=== PATIENT | female | born 1950 | race Caucasian/White ===

== ENCOUNTER 2023-01-23 20:15 | Inpatient (IN) | payer OTHER, MEDICAID ==
[~2023-01-23] VITALS: Ht 152.4 cm; Wt 43.1 kg
[2023-01-23 20:33] VITALS: BP_SYST 86
[2023-01-23] MEDS ORDERED: NS 500 ML IV ONE (20:45)
[2023-01-23] MEDS ORDERED: NACL 0.9% 1,000 ML IV ONE (20:45)
[2023-01-23 21:29] LABS: BASOPHILS % (AUTO) 0.8 % (0.0-2.0); EOSINOPHILS # (AUTO) 0.2 K/uL (0.0-0.4); EOSINOPHILS % (AUTO) 3.6 % (0.0-4.0); HEMATOCRIT 25.5 % (36-48); HEMOGLOBIN 8.4 g/dL (12.0-16.0); LYMPHOCYTES # (AUTO) 1.7 K/uL (1.0-5.5); LYMPHOCYTES % (AUTO) 40.3 % (20.5-51.5); MEAN CORPUSCULAR HEMOGLOBIN 30 pg (27-31); MEAN CORPUSCULAR HGB CONC 33 % (32-36); MEAN CORPUSCULAR VOLUME 90 fL (79.0-98.0); MONOCYTES # (AUTO) 0.4 K/uL (0.0-1.0); MONOCYTES % (AUTO) 10.2 % (1.7-9.3); NEUTROPHILS # (AUTO) 1.9 K/uL (1.8-7.7); NEUTROPHILS % (AUTO) 45.1 % (40.0-70.0); PLATELET COUNT (AUTO) 247 K/uL (130-430); RED BLOOD CELL COUNT(AUTO) 2.85 MIL/uL (4.2-6.2); RED CELL DISTRIBUTION WIDTH 19.9 % (9.0-15.0); WHITE BLOOD COUNT (AUTO) 4.2 K/uL (4.8-10.8)
[2023-01-23 21:57] LABS: ANION GAP 9 (5-15); CALCIUM 7.5 mg/dL (8.4-11.0); CHLORIDE 99 mmol/L (98-107); CREATININE 0.65 mg/dL (0.55-1.30); GLUCOSE 90 mg/dL (70-99); UREA NITROGEN, BLOOD 7 mg/dL (8-21)
[2023-01-23 22:03] LABS: ALANINE AMINOTRANSFERASE 8 U/L (12-78); ALBUMIN 1.6 g/dL (3.4-4.8); ASPARTATE AMINOTRANSFERASE 19 U/L (10-37); THYROID STIMULATING HORMONE 0.97 uIu/mL (0.34-4.82); TOTAL BILIRUBIN 0.4 mg/dL (0.0-1.0)
[2023-01-23 22:10] LABS: INR 1.2 (0.8-1.2); PROTHROMBIN TIME 12.5 SECS (9.5-12.5)
[2023-01-23] MEDS: POTASSIUM CHLORIDE 40 MEQ in D5W 250 ML IV SCH (22:30)
[2023-01-23] MEDS ORDERED: FERROUS SULFATE PO (22:47)
[2023-01-23] MEDS ORDERED: DRON2.5C22 PO (22:47)
[2023-01-23] MEDS ORDERED: METF-379 PO (22:47)
[2023-01-23] MEDS ORDERED: LACT1TAB21 PO (22:47)
[2023-01-23] MEDS ORDERED: HYDR-3917 PO (22:47)
[2023-01-23] MEDS ORDERED: MELA2.5T PO (22:47)
[2023-01-23] MEDS ORDERED: LINE600T12 IV (22:47)
[2023-01-23] MEDS ORDERED: ACET-73 PO (22:47)
[2023-01-23] MEDS ORDERED: ASCO500T20 PO (22:47)
[2023-01-23] MEDS ORDERED: SIMV-341 PO (22:47)
[2023-01-23] MEDS ORDERED: ZINC100T2 PO (22:47)
[2023-01-23] MEDS ORDERED: BENA10TA73 PO (22:47)
[2023-01-23] MEDS ORDERED: LANS30CA53 PO (22:47)
[2023-01-23] MEDS ORDERED: MULT-1117 PO (22:47)
[2023-01-23] MEDS ORDERED: ARIP20TA4 PO (22:47)
[2023-01-23] MEDS ORDERED: KCL 20 mEq in 100 mL (PREMIX) 200 ML IV ONE (23:37)
[2023-01-24] VITALS (7 sets, daily range): BP systolic 100–151
[2023-01-24] MEDS ORDERED: ONDANSETRON HCL 4 MG/2 ML VIAL IVP PRN (00:45)
[2023-01-24] MEDS ORDERED: KCL 20 mEq in NS 1000 mL 1,000 ML IV ONE (01:00)
[2023-01-24] MEDS ORDERED: ACETAMINOPHEN 500 MG TABLET PO PRN ×2 (01:00→23:45)
[2023-01-24] MEDS ORDERED: KCL 20 mEq in 100 mL (PREMIX) 200 ML IV ONE (04:37)
[2023-01-24] MEDS: POTASSIUM CHLORIDE 40 MEQ in D5W 250 ML IV SCH (04:42)
[2023-01-24 12:27] LABS: BASOPHILS % (AUTO) 0.1 % (0.0-2.0); EOSINOPHILS % (AUTO) 0.3 % (0.0-4.0); HEMOGLOBIN 8.4 g/dL (12.0-16.0); LYMPHOCYTES # (AUTO) 1.3 K/uL (1.0-5.5); LYMPHOCYTES % (AUTO) 24.7 % (20.5-51.5); MEAN CORPUSCULAR HEMOGLOBIN 29 pg (27-31); MEAN CORPUSCULAR HGB CONC 32 % (32-36); MEAN CORPUSCULAR VOLUME 91 fL (79.0-98.0); MONOCYTES # (AUTO) 0.3 K/uL (0.0-1.0); MONOCYTES % (AUTO) 6.2 % (1.7-9.3); NEUTROPHILS # (AUTO) 3.5 K/uL (1.8-7.7); NEUTROPHILS % (AUTO) 68.7 % (40.0-70.0); PLATELET COUNT (AUTO) 216 K/uL (130-430); RED BLOOD CELL COUNT(AUTO) 2.86 MIL/uL (4.2-6.2); RED CELL DISTRIBUTION WIDTH 19.7 % (9.0-15.0); WHITE BLOOD COUNT (AUTO) 5.1 K/uL (4.8-10.8)
[2023-01-24 12:32] LABS: ANION GAP 10 (5-15); CHLORIDE 106 mmol/L (98-107); CREATININE 0.57 mg/dL (0.55-1.30); GLUCOSE 95 mg/dL (70-99); UREA NITROGEN, BLOOD 5 mg/dL (8-21)
[2023-01-24 12:38] LABS: CALCIUM 6.9 mg/dL (8.4-11.0)
[2023-01-24] MEDS ORDERED: NALOXONE HCL 0.4 MG/ML AMP (NARCAN) IVP PRN (23:45)
[2023-01-24] MEDS ORDERED: HYDROcodone/ACETAMIN 5-325 MG TAB (NORCO/ VICODIN) PO PRN (23:45)
[2023-01-25] VITALS: BP_SYST 103
[2023-01-25] MEDS ORDERED: VANCOMYCIN HCL 1,000 MG in NS 250 ML IV ONE (05:00)
[2023-01-25] MEDS ORDERED: VANCOMYCIN HCL 1000 MG/VIAL IV ONE (05:19)
[2023-01-25] MEDS ORDERED: ceFAZolin SODIUM 2 GM in D5W 100 ML IV ONE (06:30)
[2023-01-25 07:50] VITALS: BP_SYST 123
[2023-01-25 08:05] LABS: INR 1.4 (0.8-1.2); PROTHROMBIN TIME 13.8 SECS (9.5-12.5)
[2023-01-25] MEDS ORDERED: BENAZEPRIL HCL Non-Formulary 10 MG TABLET PO SCH (09:00)
[2023-01-25] MEDS ORDERED: LANSOPRAZOLE 30 MG CAPSULE.DR PO SCH (09:00)
[2023-01-25] MEDS: ARIPiprazole 5 MG TAB PO SCH (09:32)
[2023-01-25] MEDS: MULTIVITAMINS TAB 1 TABLET PO SCH (09:34)
[2023-01-25] MEDS: PANTOPRAZOLE SODIUM 40 MG TAB PO SCH (09:35)
[2023-01-25] MEDS: LISINOPRIL 10 MG TABLET (PRINIVIL) PO SCH (09:35)
[2023-01-25] MEDS: LINEZOLID 600 MG TABLET PO SCH ×2 (09:36→21:15)
[2023-01-25] MEDS: ASCORBIC ACID 500 MG TABLET PO SCH (09:36)
[2023-01-25] MEDS: metFORMIN HCL 500 MG TABLET PO SCH ×3 (09:37→17:23)
[2023-01-25 12:41] VITALS: BP_SYST 124
[2023-01-25 16:14] VITALS: BP_SYST 134
[2023-01-25 20:30] VITALS: BP_SYST 107
[2023-01-25] MEDS: SIMVASTATIN 10 MG TABLET PO SCH (21:00)
[2023-01-26] VITALS (7 sets, daily range): BP systolic 110–118
[2023-01-26] MEDS ORDERED: SIMETHICONE 40 MG/0.6 ML ML ONE (06:33)
[2023-01-26] MEDS ORDERED: PROPOFOL 200MG/ 20ML VIAL (DIPRIVAN) IV ONE (07:00)
[2023-01-26] MEDS ORDERED: GLYCOPYRROLATE 0.2 MG/ML VIAL ONE (07:00)
[2023-01-26] MEDS ORDERED: NACL 0.9% 1,000 ML IV SCH (07:45)
[2023-01-26] MEDS ORDERED: ONDANSETRON HCL 4 MG/2 ML VIAL IVP PRN (07:45)
[2023-01-26] MEDS ORDERED: HYDROmorphone 1 MG/ML INJ. CARTRIDGE IVP PRN ×2 (07:45)
[2023-01-26] MEDS: metFORMIN HCL 500 MG TABLET PO SCH ×3 (08:00→17:09)
[2023-01-26] MEDS: LISINOPRIL 10 MG TABLET (PRINIVIL) PO SCH (10:06)
[2023-01-26] MEDS: MULTIVITAMINS TAB 1 TABLET PO SCH (10:06)
[2023-01-26] MEDS: LINEZOLID 600 MG TABLET PO SCH ×2 (10:06→22:27)
[2023-01-26] MEDS: ARIPiprazole 5 MG TAB PO SCH (10:06)
[2023-01-26] MEDS: PANTOPRAZOLE SODIUM 40 MG TAB PO SCH (10:06)
[2023-01-26] MEDS: ASCORBIC ACID 500 MG TABLET PO SCH (10:07)
[2023-01-26] MEDS ORDERED: ALBUTEROL SULFATE 0.083% 2.5 MG/3 ML VIAL.NEB INH PRN (11:00)
[2023-01-26] MEDS ORDERED: ALBUTEROL SULFATE 0.083% 2.5 MG/3 ML VIAL.NEB INH ONE (11:00)
[2023-01-26] MEDS: D5/0.45 NS 1,000 ML IV SCH (11:12)
[2023-01-26] MEDS: LORazepam 2 MG/ML VIAL IVP PRN (22:25)
[2023-01-26] MEDS: SIMVASTATIN 10 MG TABLET PO SCH (22:27)
[2023-01-27] VITALS: BP_SYST 126
[2023-01-27] MEDS ORDERED: METOPROLOL TARTRATE 5 MG/5 ML VIAL IVP ONE (01:00)
[2023-01-27] MEDS: LORazepam 2 MG/ML VIAL IVP PRN ×2 (05:17→16:24)
[2023-01-27] MEDS: D5/0.45 NS 1,000 ML IV SCH ×2 (05:21→23:01)
[2023-01-27 05:24] VITALS: BP_SYST 109
[2023-01-27 07:56] VITALS: BP_SYST 143
[2023-01-27] MEDS: metFORMIN HCL 500 MG TABLET PO SCH ×3 (09:03→17:49)
[2023-01-27] MEDS: PANTOPRAZOLE SODIUM 40 MG TAB PO SCH (09:03)
[2023-01-27] MEDS: ARIPiprazole 5 MG TAB PO SCH (09:03)
[2023-01-27] MEDS: ASCORBIC ACID 500 MG TABLET PO SCH (09:04)
[2023-01-27] MEDS: METOPROLOL TARTRATE 25 MG TABLET GT SCH ×2 (09:04→23:01)
[2023-01-27] MEDS: MULTIVITAMINS TAB 1 TABLET PO SCH (09:04)
[2023-01-27] MEDS: LINEZOLID 600 MG TABLET PO SCH ×2 (09:05→23:00)
[2023-01-27] MEDS: LISINOPRIL 10 MG TABLET (PRINIVIL) PO SCH (09:05)
[2023-01-27 09:10] LABS: BASOPHILS % (AUTO) 0.5 % (0.0-2.0); EOSINOPHILS % (AUTO) 0.3 % (0.0-4.0); HEMATOCRIT 26.8 % (36-48); HEMOGLOBIN 8.7 g/dL (12.0-16.0); LYMPHOCYTES # (AUTO) 1.8 K/uL (1.0-5.5); LYMPHOCYTES % (AUTO) 21.3 % (20.5-51.5); MEAN CORPUSCULAR HEMOGLOBIN 29 pg (27-31); MEAN CORPUSCULAR HGB CONC 32 % (32-36); MEAN CORPUSCULAR VOLUME 90 fL (79.0-98.0); MONOCYTES # (AUTO) 0.7 K/uL (0.0-1.0); MONOCYTES % (AUTO) 8.6 % (1.7-9.3); NEUTROPHILS # (AUTO) 5.7 K/uL (1.8-7.7); NEUTROPHILS % (AUTO) 69.3 % (40.0-70.0); PLATELET COUNT (AUTO) 265 K/uL (130-430); RED BLOOD CELL COUNT(AUTO) 2.99 MIL/uL (4.2-6.2); RED CELL DISTRIBUTION WIDTH 20.2 % (9.0-15.0); WHITE BLOOD COUNT (AUTO) 8.3 K/uL (4.8-10.8)
[2023-01-27 09:29] LABS: ALANINE AMINOTRANSFERASE 10 U/L (12-78); ALBUMIN 1.6 g/dL (3.4-4.8); ANION GAP 8 (5-15); ASPARTATE AMINOTRANSFERASE 16 U/L (10-37); CALCIUM 7.3 mg/dL (8.4-11.0); CHLORIDE 105 mmol/L (98-107); CREATININE 0.78 mg/dL (0.55-1.30); GLUCOSE 251 mg/dL (70-99); TOTAL BILIRUBIN 0.3 mg/dL (0.0-1.0); UREA NITROGEN, BLOOD 4 mg/dL (8-21)
[2023-01-27 12:00] VITALS: BP_SYST 94
[2023-01-27 16:00] VITALS: BP_SYST 140
[2023-01-27 21:00] VITALS: BP_SYST 135
[2023-01-27] MEDS: SIMVASTATIN 10 MG TABLET PO SCH (23:00)
[2023-01-27] MEDS: POTASSIUM CHLORIDE 20 MEQ TAB.PRT.SR PO PRN (23:00)
[2023-01-28 00:09] VITALS: BP_SYST 98
[2023-01-28] MEDS: POTASSIUM CHLORIDE 20 MEQ TAB.PRT.SR PO PRN (01:17)
[2023-01-28 08:00] VITALS: BP_SYST 86
[2023-01-28] MEDS ORDERED: NS 250 ML IV ONE (08:00)
[2023-01-28] MEDS: ARIPiprazole 5 MG TAB PO SCH (09:04)
[2023-01-28] MEDS: metFORMIN HCL 500 MG TABLET PO SCH ×3 (09:04→17:50)
[2023-01-28] MEDS: MULTIVITAMINS TAB 1 TABLET PO SCH (09:05)
[2023-01-28] MEDS: PANTOPRAZOLE SODIUM 40 MG TAB PO SCH (09:06)
[2023-01-28] MEDS: ASCORBIC ACID 500 MG TABLET PO SCH (09:06)
[2023-01-28 09:09] LABS: ANION GAP 10 (5-15); CHLORIDE 106 mmol/L (98-107); CREATININE 0.67 mg/dL (0.55-1.30); GLUCOSE 173 mg/dL (70-99); UREA NITROGEN, BLOOD 5 mg/dL (8-21)
[2023-01-28] MEDS: LINEZOLID 600 MG TABLET PO SCH ×2 (09:15→22:59)
[2023-01-28] MEDS ORDERED: POTASSIUM CHLORIDE 20 MEQ/PKT PACKET GT ONE ×2 (10:00→14:00)
[2023-01-28] MEDS: D5/0.45 NS 1,000 ML IV SCH (10:38)
[2023-01-28 12:00] VITALS: BP_SYST 141
[2023-01-28 16:00] VITALS: BP_SYST 92
[2023-01-28 20:30] VITALS: BP_SYST 114
[2023-01-28] MEDS: SIMVASTATIN 10 MG TABLET PO SCH (23:00)
[2023-01-29 00:18] VITALS: BP_SYST 116
[2023-01-29] MEDS: LORazepam 2 MG/ML VIAL IVP PRN (01:40)
[2023-01-29] MEDS: metFORMIN HCL 500 MG TABLET PO SCH ×2 (08:56→13:13)
[2023-01-29] MEDS: LINEZOLID 600 MG TABLET PO SCH (08:57)
[2023-01-29] MEDS: PANTOPRAZOLE SODIUM 40 MG TAB PO SCH (08:57)
[2023-01-29] MEDS: ARIPiprazole 5 MG TAB PO SCH (08:57)
[2023-01-29] MEDS: MULTIVITAMINS TAB 1 TABLET PO SCH (08:57)
[2023-01-29] MEDS: ASCORBIC ACID 500 MG TABLET PO SCH (08:57)
[2023-01-29 13:00] VITALS: BP_SYST 90
[2023-01-29 17:28] VITALS: BP_SYST 90
== END 2023-01-29 23:36 | DRG 637 ==
LOC: SED 20:15 → STU 01-24 00:58
PROVIDERS: ADMIT Family Medicine; ATTEND Family Medicine
PROC: 0DB98ZX Excision of Duodenum, Via Natural or Artificial Opening Endoscopic, Diagnostic (ICD-10-PCS; principal; 2023-01-26 07:00)
PROC: 0DH63UZ Insertion of Feeding Device into Stomach, Percutaneous Approach (ICD-10-PCS; 2023-01-26 07:00)
DX: E11.621 Type 2 diabetes mellitus with foot ulcer (principal); E43 Unspecified severe protein-calorie malnutrition; M86.661 Other chronic osteomyelitis, right tibia and fibula; Z68.1 Body mass index [BMI] 19.9 or less, adult; L97.319 Non-pressure chronic ulcer of right ankle with unspecified severity; E11.69 Type 2 diabetes mellitus with other specified complication; E11.40 Type 2 diabetes mellitus with diabetic neuropathy, unspecified; I95.9 Hypotension, unspecified; R62.7 Adult failure to thrive; R13.10 Dysphagia, unspecified; K26.9 Duodenal ulcer, unspecified as acute or chronic, without hemorrhage or perforation; K29.70 Gastritis, unspecified, without bleeding; E87.6 Hypokalemia; F79 Unspecified intellectual disabilities; I10 Essential (primary) hypertension; K21.9 Gastro-esophageal reflux disease without esophagitis; E78.5 Hyperlipidemia, unspecified; S91.001A Unspecified open wound, right ankle, initial encounter; X58.XXXA Exposure to other specified factors, initial encounter; Z20.822 Contact with and (suspected) exposure to COVID-19; G80.9 Cerebral palsy, unspecified; Z88.0 Allergy status to penicillin; Z88.8 Allergy status to other drugs, medicaments and biological substances; Z79.899 Other long term (current) drug therapy; Y93.89 Activity, other specified; Y92.89 Other specified places as the place of occurrence of the external cause; Y99.8 Other external cause status
CPT/HCPCS: 36415; 71045; 80048; 80053; 82962; 83605; 84443; 84484; 85025; 85610-TC; 85730-TC; 87040; 87081; 93005; 96360; 99285; G0378; J2060; J2704; J3370; J3480; J3490; J7050; J7060; J7613; Q0167

== ENCOUNTER 2023-02-26 11:28 | Inpatient (IN) | payer OTHER, MEDICAID ==
[~2023-02-26] VITALS: Ht 149.9 cm; Wt 41.3 kg
[~2023-02-26 11:28] MED LIST: ACET-73 PO; ARIP20TA4 PO; ASCO500T20 PO; BENA10TA73 PO; DRON2.5C22 PO; FERROUS SULFATE PO; HYDR-3917 PO; LACT1TAB21 PO; LANS30CA53 PO; LINE600T12 IV; MELA2.5T PO; METF-379 PO; MULT-1117 PO; SIMV-341 PO; ZINC100T2 PO
[2023-02-26 12:14] VITALS: BP_SYST 101
[2023-02-26 12:23] LABS: BASOPHILS % (AUTO) 0.2 % (0.0-2.0); EOSINOPHILS # (AUTO) 0.4 K/uL (0.0-0.4); EOSINOPHILS % (AUTO) 2.4 % (0.0-4.0); HEMATOCRIT 22.5 % (36-48); HEMOGLOBIN 7.1 g/dL (12.0-16.0); LYMPHOCYTES # (AUTO) 2.1 K/uL (1.0-5.5); LYMPHOCYTES % (AUTO) 13.1 % (20.5-51.5); MEAN CORPUSCULAR HEMOGLOBIN 28 pg (27-31); MEAN CORPUSCULAR HGB CONC 32 % (32-36); MEAN CORPUSCULAR VOLUME 89 fL (79.0-98.0); MONOCYTES # (AUTO) 1.1 K/uL (0.0-1.0); MONOCYTES % (AUTO) 7.1 % (1.7-9.3); NEUTROPHILS # (AUTO) 12.3 K/uL (1.8-7.7); NEUTROPHILS % (AUTO) 77.2 % (40.0-70.0); PLATELET COUNT (AUTO) 124 K/uL (130-430); RED BLOOD CELL COUNT(AUTO) 2.52 MIL/uL (4.2-6.2); RED CELL DISTRIBUTION WIDTH 20.9 % (9.0-15.0)
--- NOTE | 2023-02-26 12:25 | NUR ---
ASSESMENT PER FLOWSHEET. COMFORT MEASURES AND SUPPORTIVE CARE INITIATED. PREP FOR ERMD EVAL. PT NON-VERBAL. SENT FROM [facility] FOR GT REDNESS AT SITE AND A "BUMP" NEAR STOMA.
[2023-02-26 12:31] LABS: ANION GAP 7 (5-15); CALCIUM 7.6 mg/dL (8.4-11.0); CHLORIDE 106 mmol/L (98-107); GLUCOSE 156 mg/dL (70-99); UREA NITROGEN, BLOOD 32 mg/dL (8-21)
[2023-02-26 12:36] LABS: ALANINE AMINOTRANSFERASE 25 U/L (12-78); ALBUMIN 1.6 g/dL (3.4-4.8); ASPARTATE AMINOTRANSFERASE 19 U/L (10-37); C-REACTIVE PROTEIN QUANT 12.5 mg/dL (0-0.5); TOTAL BILIRUBIN 0.3 mg/dL (0.0-1.0)
--- NOTE | 2023-02-26 13:30 | NUR ---
PATIENT REPOSITIONED WITH PILLOW SUPPORT, HEELS REMAIN IN SOFT BOOTS
--- NOTE | 2023-02-26 14:49 | NUR ---
LAB AT BEDSIDE DRAWING LACTIC
--- NOTE | 2023-02-26 15:00 | NUR ---
Admit orders obtained from Dr. Alexander and Placed.
--- NOTE | 2023-02-26 15:09 | NUR ---
Admit bed requested Patient will be admitted to care of Dr. Alexander Admitted to MedSurge unit. Diagnosis G-Tube Cellutlitis Inpatient (Yes or No) Yes Observation (Yes or No) No Orientation concerns or request close to nursing station (Yes or No) No Covid Status Not Ordered On vent or bipap No Isolation requirements [facility] Needs a sitter No From Home (Yes or if No enter name of facility) Facility Requires Dialysis (Yes or No) No Med Rec Completed (Yes of No) Yes
--- NOTE | 2023-02-26 15:12 | NUR ---
Med rec completed
--- NOTE | 2023-02-26 15:26 | NUR ---
Per Admitting, MD will be Dr. Sang MD paged
--- NOTE | 2023-02-26 16:00 | NUR ---
Patient cleaned and new linens applied
--- NOTE | 2023-02-26 17:00 | NUR ---
Patient asleep in NAD
--- NOTE | 2023-02-26 19:10 | NUR ---
RECEIVED VERBAL REPORT FROM OUTGOING NURSE TAYLER MAY. RECEIVED PT RESTING WITH EYES CLOSED, NO S/S OF DISCOMFORT NOTED.
--- NOTE | 2023-02-27 01:15 | NUR ---
CHANGED PT'S WET GOWN AND ALEIDA, MEI-CARE PROVIDED.
--- NOTE | 2023-02-27 01:50 | NUR ---
Patient will be admitted to care of DR BERNARD. Admitted to MED SURGE\ unit. Will go to room 135B. Belongings list completed. Complete and up to date summary report printed. SBAR report to be given at bedside with opportunity for questions.
--- NOTE | 2023-02-27 02:00 | NUR ---
ADMISSION NOTE Received patient from ER via gurney. Patient admitted with diagnosis of G-TUBE CELLULITIS. Patient is awake, alert, oriented X 1 unable to make needs known. Inital assessment and interventions completed and pictures were taken of noted wound as per protocol. No s/s of distress is noted at this time and patient is on contact precautions. Toileting, pain management and safety-teach back done. Personal belongings checked and Belongings List documented. Call light within reach. Will resume care.
[2023-02-27 02:08] VITALS: BP_SYST 107
[2023-02-27] MEDS: D5/0.45 NS 1,000 ML IV SCH (06:35)
[2023-02-27 08:00] VITALS: BP_SYST 126
--- NOTE | 2023-02-27 08:23 | NUR ---
OPENING NOTES: PT IN BED WITH EYES OPENED. BREATHING IS EVEN AND UNLABORED ON RA 90%. NO S/S OF DISTRESS OR PAIN NOTED. UPDATED PT BOARD. VITAL SIGNS STABLE. CONTACT ISOLATION IS IN PLACE. GOWN AND GLOVES ARE AVAILABLE OUTSIDE THE ROOM. ALL NEEDS MET AT THIS TIME, SAFETY CHECKS MADE AND CALL LIGHT WITHIN REACH.
--- NOTE | 2023-02-27 09:47 | NUR ---
DR. SARAH NAPOLES CALLED AND SAID TO TELL DR BERNARD HE RECOMMENDS ANTIBIOTICS FOR THE INFECTION AND THAT HE WILL TAKE A LOOK AT THE G-TUBE AND POSSIBLY REPLACE IT.
--- NOTE | 2023-02-27 10:10 | NUR ---
PT WENT TO CT SCAN
[2023-02-27 12:30] VITALS: BP_SYST 127
--- NOTE | 2023-02-27 14:04 | NUR ---
Metal Furniture Repairer BINDER FOLDER OPERATOR received a call from an Rn at [facility], Lisa Bowles , , who identified self as Executive Designate for pt. Lisa also informed BINDER FOLDER OPERATOR pt. also has a Service Coord. similar to a Spectacle Truer, Lynne Fraga, . Lisa stated she wanted to speak to EBENEZER Radha. BINDER FOLDER OPERATOR asked if she could assist her since Radha was out. Lisa stated Radha had called her re. pt. Lisa stated if pt. needed consent for anything, she can give a verbal consent over the phone. BINDER FOLDER OPERATOR asked if she could look into this case and give her a call back. BINDER FOLDER OPERATOR called Rn, Richard, and was told he is out to lunch. BINDER FOLDER OPERATOR will call back.
[2023-02-27 16:53] VITALS: BP_SYST 131
--- NOTE | 2023-02-27 17:04 | NUR ---
WOUND EVALUATION: Late note for 02/27/2023 at 1704 secondary to patient care. Wound Consult received from Dr. Doron Domínguez. Thank you, Dr. Domínguez, for the consult. Patient received in a Connor Bed with an Isoflex NATHEN mattress with low air loss therapy initiated, awake, drowsy, confused, swiping at staff during skin assessment. Patient is unable to turn in bed independently. Jermaine Score is an 11. Past Medical History: Dysphagia, on G-tube feeding, Diabetes Mellitus, Hypertension, Cognitive Disability. Brought to Emergency Room for G-tube site erythema and purulent discharge, diagnosed and treated for cellulitis, admitted for further treatments. Recent Labs: WBC 16.0, RBC 2.52, hemoglobin 7.1, hematocrit 22.5, BUN 32, creatinine 0.80, glucose 156, calcium 7.6, CRP 12.5, albumin 1.6 microbiology: MRSA screen results positive. Intrinsic factors that delay wound healing: Severe Hypoalbuminemia, Diabetes Mellitus, Hyperglycemia. Extrinsic factors that delay wound healing: Decreased mobility. Wound Assessment: 1. Right Lateral Malleolus: Stage IV pressure ulcer, present on admission. Wound bed has 15% yellow slough, 10% red tissue, 75% pink tissue. No odor, scant yellow drainage. Undermining present from 69 o'clock measuring 0.1 cm. Bone is visible/palpable at around 1 o'clock. Wound measures 2.8 cm x 2.7 cm. Recommend: Cleanse wound with normal saline. Apply moisture barrier cream to jeana-wound. Apply Venelex ointment to wound bed. Cover with foam dressing. Perform wound care daily, and as needed for dressing soiling or dislodgement. Offload site with 1 pillow lengthwise under each extremity at all times. 2. Right Buttock near Ischial Tuberosity: Chronic unstageable pressure ulcer, present on admission. Wound bed has 100% black eschar. No odor, no drainage. Periwound intact. Wound measures 1.5 cm x 1.0 cm Recommend: [place] site with Betadine. Allow Betadine to air dry. Cover site with foam dressing. Perform site care daily, and as needed for dressing soiling or dislodgment. 3. Left Medial First Metatarsal Head: Old pressure ulcer site, present on admission. Site has brown discoloration under the skin. No odor, no drainage. Site measures 1.2 cm x 2.4 cm. 4. Left Distal Great Toe: Area of dark red nonblanchable redness, present on admission. 5. Right Medial Great Toe: Chronic unstageable pressure ulcer, present on admission. Wound bed has 100% black eschar. No odor, no drainage. Periwound intact. Wound measures 1.4 cm x 1.4 cm. Recommend: [place] sites with Betadine. Allow Betadine to air dry. Cover sites with foam dressings. Perform site care daily, and as needed for dressing soiling or dislodgment. 6. Right Medial Great Toe: Chronic unstageable pressure ulcer, present on admission. Wound bed has 100% black eschar. No odor, no drainage. Periwound intact. Wound measures 0.8 cm x 0.7 cm. Recommend: [place] site with Betadine. Allow Betadine to air dry. Cover site with foam dressing. Perform site care daily, and as needed for dressing soiling or dislodgment. 7. G-tube site: G-tube exit site has small purulent drainage. Surrounding tissue of G-tube site has moist, pink tissue. Recommend: Cleanse site with mild soap and water. Gently pat dry. Apply Z guard to perimeter of G-tube site. Cut alginate dressing to size of drain pad and base over G-tube exit site. Adhesive foam dressing to size a drain pad in place over G-tube exit site. Perform site care daily, and as needed for dressing soiling or dislodgment. Also recommend: Reposition patient side to side only every 2 hours with pillow support and off-load pressure areas with pillows for pressure re-distribution. Offload, elevate and float bilateral heels with 1 pillow lengthwise and each extremity at all times. Perform skin care and monitor skin integrity Q shift. Use moisture barrier cream on buttocks and other moisture susceptible areas QID and as needed for soiling. Place patient on a P500 low air-loss mattress.
--- NOTE | 2023-02-27 17:04 | NUR ---
WOUND CONSULT WITH TAYLER FRIAS. CLEANED AND REPOSITIONED PT WITH PILLOW SUPPORT.
--- NOTE | 2023-02-27 19:11 | NUR ---
CLOSING NOTES: PT IN BED WITH EYES OPENED. NO S/S OF DISTRESS OR PAIN REPORTED. BREATHING IS EVEN AND UNLABORED ON RA 98%. IV FLUIDS RUNNING PRESCRIBED. ALL NEEDS MET AT THIS TIME, SAFETY CHECKS MADE AND CALL LIGHT WITHIN REACH. WILL ENDORSE TO WINDOW ASSEMBLER NURSE.
[2023-02-27 20:00] VITALS: BP_SYST 107
[2023-02-27] MEDS ORDERED: MEROPENEM 500 MG in NS 50 ML IV SCH (23:45)
[2023-02-27] MEDS ORDERED: LORazepam 2 MG/ML VIAL IVP PRN (23:45)
[2023-02-28] VITALS: BP_SYST 110
[2023-02-28] MEDS: D5/0.45 NS 1,000 ML IV SCH ×3 (01:22→22:13)
[2023-02-28] MEDS ORDERED: MEROPENEM 500 MG VIAL IV ONE (01:32)
--- NOTE | 2023-02-28 06:22 | NUR ---
Attending Md Dr Domínguez was called, Re: RESTRAINTS ORDER. Spoke to Shari.
--- NOTE | 2023-02-28 06:40 | NUR ---
SHIFT NOTES: Patient was received during change of shift. Patient is calm unable to make needs known, with no noted s/s of distress at this time. Chest rise is even and unlabored on RA. Patient has a GT that is dressed, with a binder. No PIV is noted in place at this time, because it is noted that patient pulled it out. R ankle dressing is noted C/D/I. Patient is noted to be contact isolation for Asmita Aureus. Safety measures are in place as per protocol and care was resumed at this time. 2200: New PIV was inserted to the LFA 22G and wrapped. IV hydration was restarted D51/2NS @ 80ML/HR. At this time patient was noticed to be scratching at the skin aggresively and with G-tube on hand with no binder and Dressing was off. Wound care was provided to the dressing at this time, a new binder was placed. Patient is noted to be anxious, resistive and yells and cries when care is provided. 0000: Patient noted to be a sleep no s/s of distress is note at this time. Chest rise even and unlabored. Hygiene care was provided by AID. 0140: New order is noted for IV ABX order was noted and carried out. Call pharmacy to adjust times. 0330: Patient was transferred to a specialized bed with air mattress as indicated. Patient was upset and resistive, yelling and weeping and crying. Patient went back to sleep soon after. 0530: While ROUNDING noticed patient linen was soaked with blood including the abdominal binder and GT dressing was removed. Patient was assessed and noted that PIV had been pulled out and patient was wrapped in the line. New PIV was inserted at this time and fluid were restarted as ordered. Wound care was done to G-Tube site and new binder applied. Patient is resistive to care and cries.
[2023-02-28 07:20] LABS: BASOPHILS % (AUTO) 0.2 % (0.0-2.0); EOSINOPHILS # (AUTO) 0.3 K/uL (0.0-0.4); EOSINOPHILS % (AUTO) 2.2 % (0.0-4.0); HEMATOCRIT 25.3 % (36-48); HEMOGLOBIN 7.7 g/dL (12.0-16.0); LYMPHOCYTES # (AUTO) 1.9 K/uL (1.0-5.5); LYMPHOCYTES % (AUTO) 14.9 % (20.5-51.5); MEAN CORPUSCULAR HEMOGLOBIN 28 pg (27-31); MEAN CORPUSCULAR HGB CONC 31 % (32-36); MEAN CORPUSCULAR VOLUME 90 fL (79.0-98.0); MONOCYTES # (AUTO) 0.9 K/uL (0.0-1.0); MONOCYTES % (AUTO) 7.1 % (1.7-9.3); NEUTROPHILS # (AUTO) 9.6 K/uL (1.8-7.7); NEUTROPHILS % (AUTO) 75.6 % (40.0-70.0); PLATELET COUNT (AUTO) 122 K/uL (130-430); RED CELL DISTRIBUTION WIDTH 21.4 % (9.0-15.0); WHITE BLOOD COUNT (AUTO) 12.7 K/uL (4.8-10.8)
[2023-02-28 07:23] LABS: ANION GAP 15 (5-15); CALCIUM 8.2 mg/dL (8.4-11.0); CHLORIDE 110 mmol/L (98-107); CREATININE 0.84 mg/dL (0.55-1.30); GLUCOSE 164 mg/dL (70-99); UREA NITROGEN, BLOOD 22 mg/dL (8-21)
[2023-02-28 08:00] VITALS: BP_SYST 105
--- NOTE | 2023-02-28 08:35 | NUR ---
OPENING NOTES: PT IN BED WITH EYES OPENED. RESPONDED TO NAME. BREATHING IS EVEN AND UNLABORED ON RA 93%. NO S/S OF DISTRESS OR PAIN NOTED. UPDATED PT BOARD. VITAL SIGNS STABLE. ALL NEEDS MET AT THIS TIME, SAFETY CHECKS MADE AND CALL LIGHT WITHIN REACH.
--- NOTE | 2023-02-28 08:56 | NUR ---
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 NOTIFIED DR BERNARD HE ORDERED BACTROBAN OINTMENT BID 1 GM BOTH NASAL CAVITIES.
--- NOTE | 2023-02-28 09:10 | NUR ---
PAGED DR BERNARD TO REPORT MRSA POSITIVE. PT IS ON ISOLATION CURRENTLY FOR TADEO AURIS. WAITING FOR CALL BACK.
[2023-02-28] MEDS: MEROPENEM 500 MG in NS 50 ML IV SCH ×3 (09:31→22:12)
--- NOTE | 2023-02-28 09:46 | NUR ---
STAT X-RAY OF PT ABDOMEN IS COMPLETE.
[2023-02-28] MEDS ORDERED: MEROPENEM 500 MG in NS 50 ML IV SCH (10:00)
[2023-02-28] MEDS: BALSAM PERU/CASTOR OIL 56.7 GM OINT...G. TP SCH (10:01)
[2023-02-28] MEDS ORDERED: GASTROGRAFIN 120 ML ONE ×2 (10:13→13:36)
--- NOTE | 2023-02-28 11:23 | NUR ---
BRITTANY FROM OR SAID NOT TO USE THE G-TUBE IT SHOWS CONTRAST OUTSIDE. HE SAID THEY ARE REMOVING THE G-TUBE AND PLACING A LEONARDO IN.
--- NOTE | 2023-02-28 11:27 | NUR ---
Conversation with BEVERLEY Garcia regarding information the patient received from the admit office. I advised her that I would send this information to the patient's responsible libertarian so that they are aware. She also requested that I ask for the code status of the patient as well. Telephone call to Lynne WELLS. I advised her that I would send her a fax of some information from the hospital regarding the patient's medical. I inquired about the patient's code status and asked her to fax a copy of the status to myself. Lynne states a POLST has never been completed. I informed her I could fax her a blank copy for her to review. Lynne also requested the patient's clinical record be sent to her. I advised her that she needed to request the medical record through medical records and there is a form that needs to be submitted. A fax was sent to Lynne of: 1. POLST Form 2. medical information 3. request form for medical records
[2023-02-28] MEDS: INSULIN REGULAR, HUMAN 100 UNITS/ML, 3 ML VIAL (humuLIN R) SUBCUT PRN (11:53)
[2023-02-28 12:00] VITALS: BP_SYST 107
--- NOTE | 2023-02-28 12:01 | NUR ---
Referral faxed to [facility]. Spoke to Rei stsed he will call back w/ bed #
--- NOTE | 2023-02-28 14:00 | NUR ---
SPOKE TO RENAE AT [facility] SHE IS ASSIGNED TO ROOM 243A
[2023-02-28 16:00] VITALS: BP_SYST 106
--- NOTE | 2023-02-28 19:22 | NUR ---
CLOSING NOTES: PT IN BED WITH EYES OPENED. NO S/S OF DISTRESS OR PAIN REPORTED. BREATHING IS EVEN AND UNLABORED ON RA 96%. IV FLUIDS RUNNING PRESCRIBED. ALL NEEDS MET AT THIS TIME, SAFETY CHECKS MADE AND CALL LIGHT WITHIN REACH. WILL ENDORSE TO ANIMAL ANATOMY TEACHER NURSE.
--- NOTE | 2023-02-28 19:55 | NUR ---
RECEIVED PT IN BED, AOX0, GABLED SPEECH, EVEN AND UNLABORED BREATHING, ON ROOM AIR, VSS, NOTED BRUISES ON ARMS, BILATERAL LEG CONTRACTURE, WOUND DSGS ON LEGS, IV ACCESS TO RH INFUSING D5 1/2NS AT 80CC, PT ON BEDREST, WILL CONTINUE WITH POC
[2023-02-28 19:58] VITALS: BP_SYST 125
[2023-02-28] MEDS: MUPIROCIN 2% TOPICAL OINTMENT 22 GM NS SCH (22:13)
[2023-03-01] VITALS: BP_SYST 111
[2023-03-01] MEDS: MEROPENEM 500 MG in NS 50 ML IV SCH (05:29)
--- NOTE | 2023-03-01 06:27 | NUR ---
PT IN BED, AOX0, GARBLED SPEECH, EVEN AND UNLABORED BREATHING, ON ROOM AIR, VSS, NO CHANGES NOTED DURING SHIFT, ON CONTACT ISOLATION, IV ACCESS TO RH INFUSING D5 1/2NS AT 80CC, INCONTINENT, NO BM THIS SHIFT, NPO, BLOOD SUGAR WNL, NO INSULIN COVERAGE, WILL ENDORSE TO AM SHIFT
[2023-03-01 08:00] VITALS: BP_SYST 120
[2023-03-01] MEDS: D5/0.45 NS 1,000 ML IV SCH ×2 (08:15→20:45)
[2023-03-01] MEDS: MUPIROCIN 2% TOPICAL OINTMENT 22 GM NS SCH ×2 (09:00→22:52)
[2023-03-01] MEDS: BALSAM PERU/CASTOR OIL 56.7 GM OINT...G. TP SCH (09:00)
[2023-03-01 12:41] VITALS: BP_SYST 105
[2023-03-01] MEDS: INSULIN REGULAR, HUMAN 100 UNITS/ML, 3 ML VIAL (humuLIN R) SUBCUT PRN ×2 (12:56→17:52)
[2023-03-01 17:04] VITALS: BP_SYST 105
[2023-03-01] MEDS ORDERED: MEROPENEM 500 MG in NS 50 ML IV ONE (18:00)
--- NOTE | 2023-03-01 18:35 | NUR ---
Dietitian Recommendations * If/when medically appropriate, consider Glucerna 1.2 at 50 ml/hr (goal rate), Free Water Flush: 150 ml Q6h via GT Provides: 1440 kcal/day, 72 gm protein/day, and 1566 ml free water/day Meets: 91% of upper end of estimated caloric needs, 106% of upper end of estimated protein needs, and 112% of upper end of estimated fluid needs LP, MS, RD Please refer to Nutrition Assessment for details. Addendum: 03/01/23 at [address] Amended: Links added.
--- NOTE | 2023-03-01 19:20 | NUR ---
RECEIVED REPORT ON PATIENT FROM TAYLER WADE, ASSUMED CARE, AND STARTED ASSESSMENT.
[2023-03-01 20:00] VITALS: BP_SYST 93
[2023-03-02 00:49] VITALS: BP_SYST 102
[2023-03-02 05:31] LABS: INR 1.1 (0.8-1.2)
[2023-03-02] MEDS: MEROPENEM 500 MG in NS 50 ML IV SCH ×3 (05:49→21:43)
[2023-03-02] MEDS ORDERED: SIMETHICONE 40 MG/0.6 ML ML ONE (07:03)
[2023-03-02] MEDS ORDERED: MIDAZOLAM HCL 5 MG/5 ML VIAL ONE (07:04)
[2023-03-02] MEDS ORDERED: fentaNYL CITRATE/PF 100 MCG/2 ML AMP ONE (07:04)
[2023-03-02 07:59] VITALS: BP_SYST 97
[2023-03-02] MEDS: MUPIROCIN 2% TOPICAL OINTMENT 22 GM NS SCH ×2 (11:18→21:43)
[2023-03-02] MEDS: BALSAM PERU/CASTOR OIL 56.7 GM OINT...G. TP SCH (11:18)
[2023-03-02 11:50] VITALS: BP_SYST 103
[2023-03-02 12:00] VITALS: BP_SYST 98
[2023-03-02] MEDS: INSULIN REGULAR, HUMAN 100 UNITS/ML, 3 ML VIAL (humuLIN R) SUBCUT PRN (12:25)
--- NOTE | 2023-03-02 14:06 | NUR ---
[facility] Number for report [phone]. Transportation [facility] by [phone]
--- NOTE | 2023-03-02 17:59 | NUR ---
PEG TUBE PLACEMENT TODAY, DRESSING CLEAN AND INTACT TO PEG SITE. ABDOMINAL BINDER IN PLACE. SPOKE WITH BLUEPRINT CLERK REGARDING TUBE FEEDING, SEE ORDERS. PATIENT ACCEPTED AT [facility] PER RADIOLOGIST PHYSICIAN FOR DISCHARGE TOMORROW. PT RESING QUIETLY, NO APPARENT DISTRESS NOTED. CONTINUE TO MONITOR CLOSELY.
[2023-03-02 18:57] VITALS: BP_SYST 112
[2023-03-02 20:00] VITALS: BP_SYST 102
[2023-03-02] MEDS: D5/0.45 NS 1,000 ML IV SCH ×2 (20:16→21:50)
--- NOTE | 2023-03-02 20:32 | NUR ---
RECEIVED PT LYING IN BED, NO DISTRESS NOTED, NO S/S OF PAIN. NONVERBAL, O2 SAT 100% ON RA, IV TO RUE INFILTRATED, WILL NEED TO REINSERT IV. WEAK PULSES TO BLE, EXCESSIVE DRYNESS TO SKIN, ECCHYMOSIS NOTED TO BUE. ABD BINDER IN PLACE. DRSG TO BLE CDI. PT HAD LARGE BM. CLEANED AND REPOSITIONED.. BED IN LOW POSITION, BED ALARM ON.
[2023-03-03 01:26] VITALS: BP_SYST 147
[2023-03-03] MEDS: MEROPENEM 500 MG in NS 50 ML IV SCH ×3 (05:36→22:00)
[2023-03-03] MEDS: INSULIN REGULAR, HUMAN 100 UNITS/ML, 3 ML VIAL (humuLIN R) SUBCUT PRN (06:09)
--- NOTE | 2023-03-03 07:30 | NUR ---
Initial Note: Report received from Rosaline. Patient is awaken by voice. No pain or discomfort at this time. Bed in the lowest position and side rails x3 up. Bed alarm is on. Assessment is done and vital is checked. Will continue patient care. G-tube feeding and IV are infusing. Patient tolerated well. No residual at this time.
[2023-03-03 08:00] VITALS: BP_SYST 100
[2023-03-03] MEDS: BALSAM PERU/CASTOR OIL 56.7 GM OINT...G. TP SCH (08:55)
[2023-03-03] MEDS: MUPIROCIN 2% TOPICAL OINTMENT 22 GM NS SCH ×2 (08:55→22:01)
[2023-03-03] MEDS: D5/0.45 NS 1,000 ML IV SCH (09:26)
--- NOTE | 2023-03-03 11:05 | NUR ---
Note: Dr. Domínguez is here to see patient. OK to discontinue IV fluid and ok to discharge patient back to her [facility]. Orders noted and carried out. Charge nurse Nori is calling the facility [facility] and will discharge patient when they have a bed ready for patient. Patient is awake. No pain or discomfort at this time. Bed in the lowest position and side rails x3 up. Bed alarm is on. IV is discontinued and tube feeding is continue at 40ml/hr. Patient tolerated well. No residual or pain or discomfort at this time.
[2023-03-03 11:51] VITALS: BP_SYST 96
--- NOTE | 2023-03-03 14:05 | NUR ---
PAGED DR HALE FOR DISCHARGE MED REC AND CLARIFICATION ON IV ANTIBIOTICS FOR DISCHARGE
--- NOTE | 2023-03-03 15:22 | NUR ---
Note: Paged Dr. Domínguez again to clarify discharge med list and antibiotic. Waiting for call back.
--- NOTE | 2023-03-03 16:39 | NUR ---
SPOKE TO TO [facility] [place] [id number]. ETA FOR EPITAXIAL REACTOR TECHNICIAN ACCORDING TO STREET SWEEPER FOR TODAY "NOW BETWEEN 50 MINUTES UP TO 3 HRS." STATED "WILL CALL ONCE ON WAY. "
[2023-03-03 16:47] VITALS: BP_SYST 99
[2023-03-03 17:04] VITALS: BP_SYST 99
--- NOTE | 2023-03-03 18:48 | NUR ---
Note: called and report to Deepali in [place]. Reported conditions and new orders. made aware transportation will [facility] anytime from now to tonight. [facility] Will report to shift production associate nurse to continue patient care and continue for discharge. No pain or discomfort at this time. Addendum: 03/03/23 at 1850 by Gianni Peoples RN Closing Note:
--- NOTE | 2023-03-03 19:30 | NUR ---
OPENING NOTES Patient resting in bed - no s/s pain or distress noted. Respirations even and unlabored - head of bed elevated. IV site patent no s/s redness infection or infiltration. bed locked and in lowest position. Call light within reach.
[2023-03-03 20:00] VITALS: BP_SYST 96
--- NOTE | 2023-03-03 22:40 | NUR ---
called [facility] regarding when pickup is stated they would call back when transportation available notified mary. they stated facility is open 14/05
--- NOTE | 2023-03-03 23:45 | NUR ---
approximately at this time patient escorted via gurney with 2 transport staff to [facility] vital signs stable
== END 2023-03-04 00:26 | DRG 871 ==
LOC: SED 11:28 → SMU 15:59
PROVIDERS: ADMIT Family Medicine; ATTEND Family Medicine
PROC: 0D20XUZ Change Feeding Device in Upper Intestinal Tract, External Approach (ICD-10-PCS; principal; 2023-02-28)
PROC: 0DP6XUZ Removal of Feeding Device from Stomach, External Approach (ICD-10-PCS; 2023-03-02)
PROC: 0DH63UZ Insertion of Feeding Device into Stomach, Percutaneous Approach (ICD-10-PCS; 2023-03-02)
DX: A41.9 Sepsis, unspecified organism (principal); E43 Unspecified severe protein-calorie malnutrition; K94.22 Gastrostomy infection; K31.6 Fistula of stomach and duodenum; L03.311 Cellulitis of abdominal wall; K94.23 Gastrostomy malfunction; Z68.1 Body mass index [BMI] 19.9 or less, adult; F79 Unspecified intellectual disabilities; E78.5 Hyperlipidemia, unspecified; D64.9 Anemia, unspecified; E11.9 Type 2 diabetes mellitus without complications; R13.10 Dysphagia, unspecified; I10 Essential (primary) hypertension; Z88.1 Allergy status to other antibiotic agents; Z88.8 Allergy status to other drugs, medicaments and biological substances; Z79.899 Other long term (current) drug therapy
CPT/HCPCS: 36415; 43246; 74240-TC; 76376; 80048; 80053; 83605; 85025; 85610-TC; 86140; 87081; 96360; 99285; J1815; J2185; J2250; J3010; J7060; Q9963

== ENCOUNTER 2023-03-09 12:58 | Inpatient (IN) | payer OTHER, MEDICAID ==
[~2023-03-09] VITALS: Ht 139.7 cm; Wt 49.0 kg
[~2023-03-09 12:58] MED LIST changes: -LINE600T12 IV
--- NOTE | 2023-03-09 13:02 | NUR ---
Placed in room 07 . Placed on library monitor, blood pressure machine and pulse oximeter. To gown for exam. Side rails up. Report given to Lore LESTER
[2023-03-09 13:03] VITALS: BP_SYST 98
[2023-03-09] MEDS ORDERED: NACL 0.9% 1,000 ML IV ONE ×2 (13:15→15:15)
[2023-03-09 13:47] LABS: BASOPHILS % (AUTO) 0.2 % (0.0-2.0); EOSINOPHILS # (AUTO) 1.3 K/uL (0.0-0.4); EOSINOPHILS % (AUTO) 6.1 % (0.0-4.0); HEMOGLOBIN 7.4 g/dL (12.0-16.0); LYMPHOCYTES # (AUTO) 4.8 K/uL (1.0-5.5); LYMPHOCYTES % (AUTO) 21.7 % (20.5-51.5); MEAN CORPUSCULAR HEMOGLOBIN 28 pg (27-31); MEAN CORPUSCULAR HGB CONC 30 % (32-36); MEAN CORPUSCULAR VOLUME 96 fL (79.0-98.0); MONOCYTES # (AUTO) 0.9 K/uL (0.0-1.0); PLATELET COUNT (AUTO) 134 K/uL (130-430); RED CELL DISTRIBUTION WIDTH 23.7 % (9.0-15.0); WHITE BLOOD COUNT (AUTO) 22.1 K/uL (4.8-10.8)
[2023-03-09 14:00] LABS: ALANINE AMINOTRANSFERASE 11 U/L (12-78); ALBUMIN 1.4 g/dL (3.4-4.8); ANION GAP 8 (5-15); ASPARTATE AMINOTRANSFERASE 18 U/L (10-37); CALCIUM 9.1 mg/dL (8.4-11.0); CREATININE 1.41 mg/dL (0.55-1.30); GLUCOSE 154 mg/dL (70-99); TOTAL BILIRUBIN 0.3 mg/dL (0.0-1.0); UREA NITROGEN, BLOOD 67 mg/dL (8-21)
[2023-03-09 14:03] LABS: CHLORIDE 126 mmol/L (98-107)
--- NOTE | 2023-03-09 14:11 | NUR ---
Abnormal lab values reported. Gave report to TAYLER Everett
[2023-03-09 14:54] LABS: BILIRUBIN,URINE NEGATIVE (NEGATIVE); BLOOD, URINE TRACE (NEGATIVE); CLARITY/URINE CLEAR (CLEAR); COLOR,URINE YELLOW (YELLOW); GLUCOSE,URINE NEGATIVE (NEGATIVE); KETONES,URINE NEGATIVE (NEGATIVE); LEUKOCYTE ESTERASE ,URINE NEGATIVE (NEGATIVE); NITRITE, URINE NEGATIVE (NEGATIVE); PH,URINE 8.5 (5.0-8.0); PROTEIN URINE 1+ (NEGATIVE)
[2023-03-09 14:55] LABS: BACTERIA,URINE None Seen /HPF (None Seen); MUCUS,URINE None Seen /LPF (None Seen); WBC,URINE 0-3 /HPF (0-3)
--- NOTE | 2023-03-09 15:14 | NUR ---
ER at bedside examining patient.
[2023-03-09] MEDS ORDERED: MEROPENEM 1 GM IVPB PREMIX 50 ML IV ONE (15:15)
[2023-03-09] MEDS ORDERED: VANCOMYCIN HCL 1,000 MG in NS 250 ML IV ONE (15:15)
[2023-03-09] MEDS ORDERED: GLUCOSE (DEXTROSE) ORAL GEL -Adults PO PRN (16:30)
[2023-03-09] MEDS ORDERED: D5W 1,000 ML IV ONE (16:30)
[2023-03-09] MEDS ORDERED: DEXTROSE 50% JECT 50 ML DISP.SYRIN IVP PRN (16:30)
[2023-03-09] MEDS ORDERED: D5W 1,000 ML IV PRN (16:30)
--- NOTE | 2023-03-09 16:45 | NUR ---
Admit bed requested Patient will be admitted to care of Dr. BERNARD Admitted to TELEMETRY unit. Diagnosis SEPSIS Inpatient (Yes or No) YES Observation (Yes or No) NO Orientation concerns or request close to nursing station (Yes or No) NO Covid Status NO On vent or bipap NO Isolation requirements STANDARD PRECAUTIONS Needs a sitter NO From Home (Yes or if No enter name of facility) NO Requires Dialysis (Yes or No) NO Med Rec Completed (Yes of No) YES
--- NOTE | 2023-03-09 18:26 | NUR ---
PATIENT IN BED, NO S/S OF ACUTE DISTRESS, PLAN OF CARE ONGOING
--- NOTE | 2023-03-09 19:30 | NUR ---
RECEIVED VERBAL REPORT FROM OUTGOING NURSE. RECEIVED PT AWAKE, NO S/S OF DISCOMFORT NOTED. SAFETY PRECAUTIONS IN PLACE.
--- NOTE | 2023-03-09 21:07 | NUR ---
Patient will be admitted to care of DR BERNARD. Admitted to TELE unit. Will go to room 112B. Belongings list completed. Complete and up to date summary report printed. SBAR report to be given at bedside with opportunity for questions.
[2023-03-09] MEDS ORDERED: MEROPENEM 500 MG VIAL IV ONE (23:26)
--- NOTE | 2023-03-09 23:38 | NUR ---
CONSULTATION PAGED REASON FOR CONSULTATION: INFECTIOUS DISEASE WAS CONSULT CALLED? Y PERSON WHO WAS NOTIFIED: VIK CONSULTING PHYSICIAN: SANTOS DUPLICATING MACHINE OPERATOR SPECIALTY: ID DUPLICATING MACHINE OPERATOR PHONE NUMBER: [phone] REQUESTING PHYSICIAN: JOANA
--- NOTE | 2023-03-09 23:39 | NUR ---
CONSULTATION PAGED REASON FOR CONSULTATION: NEPHROLOGY WAS CONSULT CALLED? Y PERSON WHO WAS NOTIFIED: VIK CONSULTING PHYSICIAN: YULIA ZONE SUPERVISOR FIREARMS SPECIALTY: NEPHRO ZONE SUPERVISOR FIREARMS PHONE NUMBER: [phone] REQUESTING PHYSICIAN: JOANA
[2023-03-09] MEDS: MEROPENEM 500 MG IVPB PREMIX 50 ML IV SCH (23:53)
[2023-03-10] MEDS: MEROPENEM 500 MG IVPB PREMIX 50 ML IV SCH ×3 (05:52→22:34)
[2023-03-10 06:48] LABS: ALANINE AMINOTRANSFERASE 11 U/L (12-78); ALBUMIN 1.3 g/dL (3.4-4.8); ANION GAP 9 (5-15); ASPARTATE AMINOTRANSFERASE 21 U/L (10-37); CALCIUM 8.5 mg/dL (8.4-11.0); CREATININE 1.28 mg/dL (0.55-1.30); GLUCOSE 146 mg/dL (70-99); TOTAL BILIRUBIN 0.3 mg/dL (0.0-1.0); UREA NITROGEN, BLOOD 60 mg/dL (8-21)
[2023-03-10 07:23] LABS: CHLORIDE 129 mmol/L (98-107)
[2023-03-10 07:39] LABS: BASOPHILS % (AUTO) 0.2 % (0.0-2.0); EOSINOPHILS # (AUTO) 1.3 K/uL (0.0-0.4); EOSINOPHILS % (AUTO) 7.6 % (0.0-4.0); LYMPHOCYTES # (AUTO) 3.8 K/uL (1.0-5.5); LYMPHOCYTES % (AUTO) 23.3 % (20.5-51.5); MEAN CORPUSCULAR HEMOGLOBIN 29 pg (27-31); MEAN CORPUSCULAR HGB CONC 30 % (32-36); MEAN CORPUSCULAR VOLUME 96 fL (79.0-98.0); MONOCYTES # (AUTO) 0.6 K/uL (0.0-1.0); MONOCYTES % (AUTO) 3.8 % (1.7-9.3); NEUTROPHILS # (AUTO) 10.7 K/uL (1.8-7.7); NEUTROPHILS % (AUTO) 65.1 % (40.0-70.0); PLATELET COUNT (AUTO) 125 K/uL (130-430); RED BLOOD CELL COUNT(AUTO) 2.38 MIL/uL (4.2-6.2); RED CELL DISTRIBUTION WIDTH 23.9 % (9.0-15.0); WHITE BLOOD COUNT (AUTO) 16.5 K/uL (4.8-10.8)
[2023-03-10 07:50] LABS: HEMOGLOBIN 6.8 g/dL (12.0-16.0)
[2023-03-10 08:00] VITALS: BP_SYST 142
--- NOTE | 2023-03-10 08:10 | NUR ---
critical- Paged Dr. Domínguez re: critical lab.
--- NOTE | 2023-03-10 09:26 | NUR ---
consent- Called [facility] for blood transfusion consent. Spoke to Katie. Per Staff the director will call us back for consent.
--- NOTE | 2023-03-10 09:38 | NUR ---
spoke to Lisa Montes- Executive designee for consent at [facility] and give consent for blood transfusion ). Lynne Fraga in the facesheet is not back until sunday.
[2023-03-10] MEDS: D5W 1,000 ML IV SCH ×2 (09:51→22:33)
[2023-03-10] MEDS: INSULIN REGULAR, HUMAN 100 UNITS/ML, 3 ML VIAL (humuLIN R) SUBCUT PRN (11:16)
[2023-03-10 12:00] VITALS: BP_SYST 135
--- NOTE | 2023-03-10 15:23 | NUR ---
Notes- First unit of PRBC started. will monitor for reaction.
[2023-03-10 16:00] VITALS: BP_SYST 139
--- NOTE | 2023-03-10 18:30 | NUR ---
First unit of blood transfusion is done, no reaction noted. will endorse to give the second unit.
--- NOTE | 2023-03-10 20:00 | NUR ---
Restraints KITTY ROBERTSON. RENEWED @ THIS TIME and date DR JOANA ARELLANO .
--- NOTE | 2023-03-10 20:55 | NUR ---
second unit of blood infusing PRBC no adverse REACTION NOTED CONTINUE TO MONITOR / .
[2023-03-10 21:00] VITALS: BP_SYST 94
--- NOTE | 2023-03-11 | NUR ---
PRBC second unit completed patient is awake no adverse Reaction noted tolerated continue to monitor / .
[2023-03-11 00:23] VITALS: BP_SYST 92
--- NOTE | 2023-03-11 02:24 | NUR ---
HOURLY ROUNDING patient awake HOB elevated on Tube feeding no s/x of aspiration chest movement symmetrical skin dry warm .
--- NOTE | 2023-03-11 05:11 | NUR ---
WOUND care provided multiple wounds , tolerated , open skin areas .
--- NOTE | 2023-03-11 05:12 | NUR ---
stool sample collected & sent to lab .
--- NOTE | 2023-03-11 06:31 | NUR ---
PHONED PAGED DR JOANA ARELLANO Regarding patient has poor viji access & Requesting a MIDLINE IV / .
[2023-03-11] MEDS: MEROPENEM 500 MG IVPB PREMIX 50 ML IV SCH ×3 (06:47→21:37)
[2023-03-11 06:59] LABS: BASOPHILS # (AUTO) 0.1 K/uL (0.0-0.2); BASOPHILS % (AUTO) 0.4 % (0.0-2.0); EOSINOPHILS # (AUTO) 1.7 K/uL (0.0-0.4); EOSINOPHILS % (AUTO) 10.1 % (0.0-4.0); HEMATOCRIT 32.5 % (36-48); HEMOGLOBIN 10.5 g/dL (12.0-16.0); LYMPHOCYTES # (AUTO) 4.7 K/uL (1.0-5.5); LYMPHOCYTES % (AUTO) 27.4 % (20.5-51.5); MEAN CORPUSCULAR HEMOGLOBIN 29 pg (27-31); MEAN CORPUSCULAR HGB CONC 32 % (32-36); MEAN CORPUSCULAR VOLUME 90 fL (79.0-98.0); MONOCYTES # (AUTO) 0.8 K/uL (0.0-1.0); MONOCYTES % (AUTO) 4.7 % (1.7-9.3); NEUTROPHILS # (AUTO) 9.8 K/uL (1.8-7.7); NEUTROPHILS % (AUTO) 57.4 % (40.0-70.0); PLATELET COUNT (AUTO) 143 K/uL (130-430); RED BLOOD CELL COUNT(AUTO) 3.61 MIL/uL (4.2-6.2); RED CELL DISTRIBUTION WIDTH 19.7 % (9.0-15.0); WHITE BLOOD COUNT (AUTO) 17.1 K/uL (4.8-10.8)
--- NOTE | 2023-03-11 07:06 | NUR ---
PHONED PAGED DR JOANA ARELLANO again call back pending / .
--- NOTE | 2023-03-11 07:14 | NUR ---
New orders for MIDLINE DR JOANA ARELLANO .
[2023-03-11 07:23] LABS: ALANINE AMINOTRANSFERASE 11 U/L (12-78); ALBUMIN 1.3 g/dL (3.4-4.8); ANION GAP 9 (5-15); ASPARTATE AMINOTRANSFERASE 21 U/L (10-37); CALCIUM 8.6 mg/dL (8.4-11.0); CREATININE 1.24 mg/dL (0.55-1.30); GLUCOSE 121 mg/dL (70-99); TOTAL BILIRUBIN 0.4 mg/dL (0.0-1.0); UREA NITROGEN, BLOOD 49 mg/dL (8-21)
[2023-03-11 07:38] LABS: CHLORIDE 127 mmol/L (98-107)
[2023-03-11 07:45] VITALS: BP_SYST 100
--- NOTE | 2023-03-11 08:00 | NUR ---
INITIAL NOTES OPEN HER EYES, PATIENT'S MOWN WHEN REPOSITION. NO IV ACCESS. WILL START A NEW ONE.
--- NOTE | 2023-03-11 10:00 | NUR ---
Notes IV was started on the left arm by the charge nurse.
[2023-03-11] MEDS: D5W 1,000 ML IV SCH ×2 (10:15→21:36)
--- NOTE | 2023-03-11 11:30 | NUR ---
MD ROUNDS SEEN BY DR. SOLARES (1D) MADE AWARE OF PATIENT'S SKIN CONDITION THAT'S FLAKY, DRY.
[2023-03-11 12:00] VITALS: BP_SYST 98
--- NOTE | 2023-03-11 15:14 | NUR ---
Dietitian Recommendations * Glucerna 1.2 @ 50 mL/hr, Amol BID, w/ FWF 200mL q6h via GT: - Provides (w/ Amol BID): 1620 kcals, 77 g PRO, and 1766 mL of total volume daily. - Meets: 93% upper est. kcal needs, 105% lower est. PRO needs, and 118% upper est. fluid needs daily. * Consider D/C D5 to prevent hyperglycemia. Submitted for ELVIE Dougherty by Monique Angulo, MPH, RD
[2023-03-11 16:31] VITALS: BP_SYST 99
[2023-03-11] MEDS: INSULIN REGULAR, HUMAN 100 UNITS/ML, 3 ML VIAL (humuLIN R) SUBCUT PRN (16:49)
--- NOTE | 2023-03-11 20:03 | NUR ---
Received report from day shift nurse. Pt is eyes closed in bed. Pt is alert and oriented x1. On room air. IV intact and infusing. GT intact and on continuous feeding. Tele monitor in place. Bilateral soft mittens in place. CSM in BUE. Wound dressings DCI. No new complaints or distress noted. Safety precautions enforced. Bed alarm on. Will continue to monitor.
[2023-03-11 22:00] VITALS: BP_SYST 100
--- NOTE | 2023-03-12 00:08 | NUR ---
Amol given via GT. 0 residuals. Repositioned pt q2hr. No distress noted. Will continue to monitor. Addendum: 03/12/23 at 0130 by [facility], RN RN Perineal care completed, linens changed. Repositioned. BP 86/40, albumin level 1.3. Received order for albumin 200ml. Will administer and continue to monitor.
[2023-03-12 00:19] VITALS: BP_SYST 86
[2023-03-12] MEDS ORDERED: ALBUMIN HUMAN 25% 200 ML IV ONE (01:30)
[2023-03-12 04:00] VITALS: BP_SYST 105
[2023-03-12 05:33] LABS: BASOPHILS % (AUTO) 0.1 % (0.0-2.0); EOSINOPHILS # (AUTO) 1.7 K/uL (0.0-0.4); HEMATOCRIT 27.3 % (36-48); HEMOGLOBIN 8.8 g/dL (12.0-16.0); LYMPHOCYTES # (AUTO) 6.7 K/uL (1.0-5.5); LYMPHOCYTES % (AUTO) 34.1 % (20.5-51.5); MEAN CORPUSCULAR HEMOGLOBIN 29 pg (27-31); MEAN CORPUSCULAR HGB CONC 32 % (32-36); MEAN CORPUSCULAR VOLUME 90 fL (79.0-98.0); NEUTROPHILS # (AUTO) 10.1 K/uL (1.8-7.7); NEUTROPHILS % (AUTO) 51.8 % (40.0-70.0); PLATELET COUNT (AUTO) 150 K/uL (130-430); RED BLOOD CELL COUNT(AUTO) 3.03 MIL/uL (4.2-6.2); RED CELL DISTRIBUTION WIDTH 19.7 % (9.0-15.0); WHITE BLOOD COUNT (AUTO) 19.5 K/uL (4.8-10.8)
[2023-03-12] MEDS: MEROPENEM 500 MG IVPB PREMIX 50 ML IV SCH (05:58)
[2023-03-12 06:01] LABS: ANION GAP 7 (5-15); CALCIUM 8.4 mg/dL (8.4-11.0); CREATININE 1.18 mg/dL (0.55-1.30); GLUCOSE 134 mg/dL (70-99); UREA NITROGEN, BLOOD 49 mg/dL (8-21)
[2023-03-12 06:06] LABS: CHLORIDE 121 mmol/L (98-107)
--- NOTE | 2023-03-12 06:52 | NUR ---
0400: VSS. BP improved 105/63. Repositioned pt. Changed GTF bag and tubing. Residuals 150 ml. Will hold and recheck. 0655: Pt eyes closed in bed. IV intact and infusing. BG 135, no coverage. GT intact. Checked residuals, 220 ml. GTF held. Bilateral mitts remained in place. CSM in BUE. Critical lab values (Na 160, Chl 121) improving and notified Dr. Wallace. Dr. Wallace verbalized understanding and ordered spaulding for pt gluteal wound. Pt repositioned. Perineal care completed and barrier cream placed on gluteal wound. BLE wound dressings DCI. Wound consult to evaluate pt. Pt to have midline placed today. No acute distress noted. Safety and aspiration precautions enforced. All needs met. Will endorse to day shift nurse.
--- NOTE | 2023-03-12 07:30 | NUR ---
Opening Nurse Notes: Patient laying in bed. A/O x 0, patient occasionally moaning. Patient breathing even on room air. No pain, mild distress, no SOB. Patient is on a G-tube diet. Bed is locked in lowest position. Call light within reach, all needs met, will continue with plan of care. Addendum: 03/12/23 at 0942 by Cisco Higuera LVN A/O x 1
[2023-03-12 08:00] VITALS: BP_SYST 112
--- NOTE | 2023-03-12 08:15 | NUR ---
Martin Insertion Nurse Notes: Patient had Martin inserted. Patient tolerated procedure well. Inserted by TAYLER Todd, assisted by BEVERLEY Peck. Martin immediately drained yellow with white purulent drainage.
--- NOTE | 2023-03-12 12:00 | NUR ---
Afternoon Nurse Notes: Patient in bed in stable condition. Patient on room air. No pain, moderate distress, no SOB. Bed is locked in lowest position. Call light within reach, all needs met, will continue with plan of care.
[2023-03-12 12:30] VITALS: BP_SYST 96
[2023-03-12] MEDS: D5W 1,000 ML IV SCH (12:37)
--- NOTE | 2023-03-12 12:47 | NUR ---
SYD spoke with Jonah at [facility] [phone]. Jonah informs that they will take patient back when stable for discharge.
[2023-03-12] MEDS: INSULIN REGULAR, HUMAN 100 UNITS/ML, 3 ML VIAL (humuLIN R) SUBCUT PRN (13:03)
[2023-03-12] MEDS: VANCOMYCIN HCL 500 MG in NS 100 ML IV SCH (13:59)
[2023-03-12] MEDS ORDERED: AZTREONAM 1 GM in NS 50 ML IV ONE (14:00)
--- NOTE | 2023-03-12 15:33 | NUR ---
Midline Nurse Notes: Midline, double lumen, length 12, arm circumference 30. Midline put in by Dk.
--- NOTE | 2023-03-12 16:05 | NUR ---
Late Noon Nurse Notes: Patient laying in bed. No pain, no distress, no SOB. Bed is locked in lowest position. Call light within reach, all needs met, will continue with plan of care.
[2023-03-12 17:19] VITALS: BP_SYST 91
--- NOTE | 2023-03-12 18:36 | NUR ---
RD Notification RD notification d/t nutritional risk on 03/12/23 @ 0107. Pt was seen and assessed by RD 03/11/22; please refer to recent Nutrition Assessment for details. RD to continue to follow as per nutrition care standards.
--- NOTE | 2023-03-12 19:00 | NUR ---
Closing Nurse Notes: Patient stable, A/O x1, nonverbal. Patient breathing even and unlabored on room air. No pain, no distress, no SOB. Bed is locked in lowest position. Patients' Amol was not brought to floor, will inform oncoming RN that I left a message for the kitchen this evening. Call light within reach, all needs met, will endorse to regional clinical director nurse TAYLER Conrad.
--- NOTE | 2023-03-12 19:30 | NUR ---
OPENING NOTE Pt is lying in bed, eyes closed. No s/s of respiratory distress. Breathing even and unlabored on RA. GT intact with tube feeding infusing. IV site intact with fluids running at ordered rate. Martin catheter intact and draining by gravity. Fall and safety precautions in place with bed in lowest position, bed alarm on, and call light within reach
[2023-03-12 20:00] VITALS: BP_SYST 99
[2023-03-12] MEDS: METHYLPREDNISOLONE SOD SUCC 40 MG/ML VIAL IVP SCH (20:06)
[2023-03-12] MEDS: AZTREONAM 1 GM in NS 50 ML IV SCH (23:33)
[2023-03-13 00:14] VITALS: BP_SYST 100
--- NOTE | 2023-03-13 00:15 | NUR ---
ROUNDS Pt lying in bed, eyes closed. Breathing even and unlabored. Fall and safety checks in place
[2023-03-13] MEDS: D5W 1,000 ML IV SCH (04:35)
[2023-03-13 05:15] LABS: BASOPHILS % (AUTO) 0.1 % (0.0-2.0); EOSINOPHILS # (AUTO) 0.2 K/uL (0.0-0.4); EOSINOPHILS % (AUTO) 1.7 % (0.0-4.0); HEMATOCRIT 26.8 % (36-48); HEMOGLOBIN 8.6 g/dL (12.0-16.0); LYMPHOCYTES # (AUTO) 4.1 K/uL (1.0-5.5); LYMPHOCYTES % (AUTO) 29.4 % (20.5-51.5); MEAN CORPUSCULAR HEMOGLOBIN 29 pg (27-31); MEAN CORPUSCULAR HGB CONC 32 % (32-36); MEAN CORPUSCULAR VOLUME 91 fL (79.0-98.0); MONOCYTES # (AUTO) 0.4 K/uL (0.0-1.0); MONOCYTES % (AUTO) 3.1 % (1.7-9.3); NEUTROPHILS # (AUTO) 9.2 K/uL (1.8-7.7); NEUTROPHILS % (AUTO) 65.7 % (40.0-70.0); PLATELET COUNT (AUTO) 157 K/uL (130-430); RED BLOOD CELL COUNT(AUTO) 2.96 MIL/uL (4.2-6.2); RED CELL DISTRIBUTION WIDTH 20.5 % (9.0-15.0); WHITE BLOOD COUNT (AUTO) 14.1 K/uL (4.8-10.8)
[2023-03-13 05:32] LABS: ALANINE AMINOTRANSFERASE 1 U/L (12-78); ALBUMIN 1.7 g/dL (3.4-4.8); ANION GAP 6 (5-15); ASPARTATE AMINOTRANSFERASE 15 U/L (10-37); CALCIUM 7.9 mg/dL (8.4-11.0); CHLORIDE 114 mmol/L (98-107); CREATININE 1.03 mg/dL (0.55-1.30); GLUCOSE 261 mg/dL (70-99); TOTAL BILIRUBIN 0.3 mg/dL (0.0-1.0); UREA NITROGEN, BLOOD 44 mg/dL (8-21)
[2023-03-13] MEDS: AZTREONAM 1 GM in NS 50 ML IV SCH ×3 (06:13→23:47)
[2023-03-13] MEDS: INSULIN REGULAR, HUMAN 100 UNITS/ML, 3 ML VIAL (humuLIN R) SUBCUT PRN ×2 (06:23→17:56)
--- NOTE | 2023-03-13 06:51 | NUR ---
CLOSING NOTE Pt is lying in bed, eyes closed. No s/s of respiratory distress. Breathing even and unlabored on RA. GT intact with tube feeding infusing. IV site intact with fluids running at ordered rate. Martin catheter intact and draining by gravity. Bilateral soft mitten restraints in place. All needs met throughout shift. Fall and safety precautions in place with bed in lowest position, bed alarm on, and call light within reach
--- NOTE | 2023-03-13 07:05 | NUR ---
Opening Nurse Notes: Patient laying in bed. A/O x 1, patient occasionally moaning when softly touched. Patient breathing even on room air. No pain, mild distress, no SOB. Patient is on a G-tube diet, running at 50mL/hr. Bed is locked in lowest position. Call light within reach, all needs met, will continue with plan of care.
[2023-03-13 08:00] VITALS: BP_SYST 112
[2023-03-13] MEDS: METHYLPREDNISOLONE SOD SUCC 40 MG/ML VIAL IVP SCH ×2 (09:04→20:28)
[2023-03-13] MEDS ORDERED: FUROSEMIDE 40 MG/4 ML VIAL IVP ONE (10:15)
[2023-03-13 11:04] VITALS: BP_SYST 101
--- NOTE | 2023-03-13 12:00 | NUR ---
Afternoon Nurse Notes: Patient in bed in stable condition. Patient on room air. No pain, no distress, no SOB. Bed is locked in lowest position. Call light within reach, all needs met, will continue with plan of care.
[2023-03-13 15:25] VITALS: BP_SYST 111
[2023-03-13] MEDS: VANCOMYCIN HCL 500 MG in NS 100 ML IV SCH (16:27)
--- NOTE | 2023-03-13 19:05 | NUR ---
Closing Nurse Notes: Patient stable, A/O x1, nonverbal. Patient breathing even and unlabored on room air. No pain, no distress, no SOB. Bed is locked in lowest position. Patients' Amol was brought to floor, will inform oncoming RN that last Amol is on bedside table and ready to go. Call light within reach, all needs met, will endorse to property management accountant nurse TAYLER Conrad.
--- NOTE | 2023-03-13 19:30 | NUR ---
OPENING NOTE Pt is lying in bed, eyes closed. No s/s of respiratory distress. Breathing even and unlabored on RA. GT intact with tube feeding infusing. PAULY midline intact and patent saline lock. Martin catheter intact and draining by gravity. Bilateral soft mittens in place. Fall and safety precautions in place with bed in lowest position, bed alarm on, and call light within reach
[2023-03-13 20:00] VITALS: BP_SYST 96
[2023-03-14 00:10] VITALS: BP_SYST 101
--- NOTE | 2023-03-14 00:15 | NUR ---
ROUNDS Pt lying in bed, eyes closed. Breathing even and unlabored. Fall and safety checks in place
[2023-03-14] MEDS: AZTREONAM 1 GM in NS 50 ML IV SCH ×3 (06:16→21:28)
--- NOTE | 2023-03-14 07:30 | NUR ---
OPENING NOTE; PT SLEEPING IN BED, UNLABORED AND REGULAR BREATHING. G-TUBE FEED RUNNING ORDERED, MIDLINE REMAIN INTACT AND PATENT. NO IV INFILTRATION OR INFECTION NOTED. BILATERAL MITTENS NOTED CHECKED SKIN INTEGRITY AND GOOD CIRCULATION NOTED. PT IS NON-VERBAL BUT ABLE TO FOLLOW EYE MOVEMENT. LEONARDO CATHETER DRAINING BY GRAVITY NO KINKS OR BLOCKAGE NOTED. SAFETY PRECAUTION IN PLACE. CALL LIGHT WITHIN REACH. WILL CONT TO MONITOR FOR ANY CHANGES.
[2023-03-14 08:00] VITALS: BP_SYST 92
[2023-03-14] MEDS: METHYLPREDNISOLONE SOD SUCC 40 MG/ML VIAL IVP SCH ×2 (08:37→21:28)
--- NOTE | 2023-03-14 10:04 | NUR ---
ORAL CARE PROVIDED. PT TOLERATED WELL.
[2023-03-14] MEDS: INSULIN REGULAR, HUMAN 100 UNITS/ML, 3 ML VIAL (humuLIN R) SUBCUT PRN (11:56)
--- NOTE | 2023-03-14 12:00 | NUR ---
FWF 300ML ADMINISTERED VIA G-TUBE. CHANGED G-TUBE GAUZE.
[2023-03-14 12:21] VITALS: BP_SYST 99
--- NOTE | 2023-03-14 14:30 | NUR ---
WOUND CARE PROVIDED. SEE [facility] SHIFT ASSESSMENT
[2023-03-14] MEDS: VANCOMYCIN HCL 500 MG in NS 100 ML IV SCH (14:31)
--- NOTE | 2023-03-14 14:50 | NUR ---
SCABIES WET MOUNT PERFORMED, DROPPED THE SAMPLE OFF AT LAB
--- NOTE | 2023-03-14 16:30 | NUR ---
ORAL CARE PROVIDED. PT TOLERATED WELL
[2023-03-14 16:46] VITALS: BP_SYST 96
--- NOTE | 2023-03-14 18:00 | NUR ---
FWF 300ML ADMINISTERED VIA G-TUBE. NO KINK. KEPT THE LINE PATENT.
[2023-03-14 18:06] LABS: MYCOPLASMA PNEUMONIAE IgM <770 U/mL (0-769)
--- NOTE | 2023-03-14 19:00 | NUR ---
CLOSING NOTE; PT RESTING IN BED WITH B WRIST MITTENS ON. MIDLINE TO PAULY REMAIN INTACT AND PATENT. NO IV INFILTRATION OR INFECTION NOTED. G-TUBE FEEDING ORDERED WITH SITE REMAIN INTACT. LEONARDO CATHETER DRAINING BY GRAVITY. NO KINK OR BLOCKAGE NOTED. BED IS LOCKED AND AT LOWEST POSITION. SAFETY PRECAUTION IN PLACE. CALL LIGHT WITHIN REACH. ENDORSED CARE TO NUTRITION TECHNICIAN NURSE.
[2023-03-14 20:30] VITALS: BP_SYST 113
[2023-03-14 21:08] LABS: BASOPHILS % (AUTO) 0.1 % (0.0-2.0); EOSINOPHILS # (AUTO) 0.3 K/uL (0.0-0.4); EOSINOPHILS % (AUTO) 2.4 % (0.0-4.0); HEMOGLOBIN 9.5 g/dL (12.0-16.0); LYMPHOCYTES # (AUTO) 3.7 K/uL (1.0-5.5); LYMPHOCYTES % (AUTO) 29.7 % (20.5-51.5); MEAN CORPUSCULAR HEMOGLOBIN 29 pg (27-31); MEAN CORPUSCULAR HGB CONC 32 % (32-36); MEAN CORPUSCULAR VOLUME 91 fL (79.0-98.0); MONOCYTES # (AUTO) 0.8 K/uL (0.0-1.0); MONOCYTES % (AUTO) 6.1 % (1.7-9.3); NEUTROPHILS # (AUTO) 7.7 K/uL (1.8-7.7); NEUTROPHILS % (AUTO) 61.7 % (40.0-70.0); PLATELET COUNT (AUTO) 194 K/uL (130-430); WHITE BLOOD COUNT (AUTO) 12.5 K/uL (4.8-10.8)
[2023-03-14 21:13] LABS: ANION GAP 3 (5-15); CALCIUM 8.2 mg/dL (8.4-11.0); CHLORIDE 112 mmol/L (98-107); CREATININE 0.86 mg/dL (0.55-1.30); GLUCOSE 164 mg/dL (70-99); UREA NITROGEN, BLOOD 54 mg/dL (8-21)
[2023-03-15 01:47] VITALS: BP_SYST 115
[2023-03-15] MEDS: AZTREONAM 1 GM in NS 50 ML IV SCH ×2 (06:07→15:03)
--- NOTE | 2023-03-15 06:10 | NUR ---
Closing notes Pt awake, alert, confused. BS checked 165, 2 units Reg insulin administered. Pt has angela mittens. IV abx infusing PAULY midline. GT feeding Glucerna running at 50cc/hr, tolerating well. Pt had a BM this AM. Martin cath draining Pt on low air loss mattress. To endorse to AM nurse.
[2023-03-15] MEDS: INSULIN REGULAR, HUMAN 100 UNITS/ML, 3 ML VIAL (humuLIN R) SUBCUT PRN ×2 (06:20→15:58)
[2023-03-15] MEDS: METHYLPREDNISOLONE SOD SUCC 40 MG/ML VIAL IVP SCH (08:30)
--- NOTE | 2023-03-15 11:38 | NUR ---
FAXED THE PACKET TO [facility] TO GET A BED FOR MRS SHIN. WAITING TO HEAR BACK
[2023-03-15 12:29] VITALS: BP_SYST 113
--- NOTE | 2023-03-15 14:24 | NUR ---
[facility] GOING TO ROOM 243A
--- NOTE | 2023-03-15 14:30 | NUR ---
ATTENDING MD DR Elisabeth BERNARD WAS CALLED, RE: TO CHANGE IV SOLUMEDROL TO PO. SPOKE TO SIN.
--- NOTE | 2023-03-15 15:27 | NUR ---
TELEPHONE CALL TO DR. BERNARD FOR FINAL DC ORDERS AND MED REC TO BE DONE, AWAITING REPLY
--- NOTE | 2023-03-15 15:34 | NUR ---
SET UP MEDIC 1 THEY ARE ON WILL CALL. GAVE PACKET TO THE RN
--- NOTE | 2023-03-15 15:43 | NUR ---
DR Elisabeth BERNARD, ATTENDING MD WAS CALLED FOR DC ORDER AND MED RECONCILLATION.
[2023-03-15 16:22] VITALS: BP_SYST 126
--- NOTE | 2023-03-15 16:36 | NUR ---
WILL CALL STATUS WITH MED[facility] ONE WAS ACTIVATED. BOARD ATTENDANT TIME IS 193 GOING TO [facility], 234 A. SPOKE TO KATJA.
--- NOTE | 2023-03-15 18:01 | NUR ---
WOUND CARE PROVIDED, APTIENT TOLERATED WEDLL
--- NOTE | 2023-03-15 20:20 | NUR ---
D/C Patient Patient given medication reconciliation form and D/C instructions. Exit Care provided. MD discussed with patient the results and treatment provided. Patient in stable condition, ID band removed. Midline catheter removed, intact and dressing applied, no active bleeding. F/c removed per AM nurse. Patient educated on pain management. All belongings sent with patient.
[2023-03-21 12:07] LABS: IMMUNOGLOBULIN E,TOTAL 14862 IU/mL (6-495)
== END 2023-03-15 20:10 | DRG 871 ==
LOC: SED 12:58 → STU 16:21 → SMU 03-13 08:38
PROVIDERS: ADMIT Family Medicine; ATTEND Family Medicine
PROC: 30233N1 Transfusion of Nonautologous Red Blood Cells into Peripheral Vein, Percutaneous Approach (ICD-10-PCS; principal; 2023-03-10)
PROC: 05HY33Z Insertion of Infusion Device into Upper Vein, Percutaneous Approach (ICD-10-PCS; 2023-03-13)
DX: A41.9 Sepsis, unspecified organism (principal); E43 Unspecified severe protein-calorie malnutrition; N17.9 Acute kidney failure, unspecified; E87.0 Hyperosmolality and hypernatremia; N39.0 Urinary tract infection, site not specified; K94.22 Gastrostomy infection; L03.311 Cellulitis of abdominal wall; L51.1 Stevens-Johnson syndrome; E78.5 Hyperlipidemia, unspecified; E11.9 Type 2 diabetes mellitus without complications; E86.0 Dehydration; L30.9 Dermatitis, unspecified; E87.8 Other disorders of electrolyte and fluid balance, not elsewhere classified; R65.20 Severe sepsis without septic shock; I12.9 Hypertensive chronic kidney disease with stage 1 through stage 4 chronic kidney disease, or unspecified chronic kidney disease; N18.9 Chronic kidney disease, unspecified; D64.9 Anemia, unspecified; E11.22 Type 2 diabetes mellitus with diabetic chronic kidney disease; R13.10 Dysphagia, unspecified; Z74.01 Bed confinement status; Z87.440 Personal history of urinary (tract) infections; Z79.899 Other long term (current) drug therapy; Y92.89 Other specified places as the place of occurrence of the external cause; Z68.25 Body mass index [BMI] 25.0-25.9, adult
CPT/HCPCS: 36415; 71045; 80048; 80053; 81000; 82272; 82785; 83605; 85025; 85651-TC; 86738; 86886; 86900; 86901; 86920; 87040; 87081; 87086; 87210-TC; 93005; 96361; 96365; 99291; G0378; J1030; J2185; J3370; J3490; J7030; J7040; J7050; J7060; P9021

== ENCOUNTER 2024-07-17 10:25 | Inpatient (IN) | payer OTHER, MEDICAID ==
[~2024-07-17] VITALS: Ht 152.4 cm; Wt 52.7 kg
[~2024-07-17 10:25] MED LIST changes: +ARIP20TA4 GT; -ARIP20TA4 PO; +FERROUS SULFATE GT; -FERROUS SULFATE PO; -MELA2.5T PO; +MELA2.5T16 GT
[2024-07-17 10:31] VITALS: BP_SYST 144; PULSE 76; RESP 22; TEMP 98.9; O2SAT 98
[2024-07-17] MEDS ORDERED: FAMOTIDINE PF 20 MG/2 ML VIAL ONE (11:07)
[2024-07-17 11:39] LABS: BASOPHILS % (AUTO) 0.4 % (0.0-2.0); EOSINOPHILS # (AUTO) 0.1 K/uL (0.0-0.4); EOSINOPHILS % (AUTO) 0.9 % (0.0-4.0); HEMATOCRIT 32.1 % (36-48); HEMOGLOBIN 10.6 g/dL (12.0-16.0); LYMPHOCYTES # (AUTO) 1.6 K/uL (1.0-5.5); LYMPHOCYTES % (AUTO) 13.5 % (20.5-51.5); MEAN CORPUSCULAR HEMOGLOBIN 31 pg (27-31); MEAN CORPUSCULAR HGB CONC 33 % (32-36); MEAN CORPUSCULAR VOLUME 93 fL (79.0-98.0); MONOCYTES % (AUTO) 8.6 % (1.7-9.3); NEUTROPHILS # (AUTO) 9.1 K/uL (1.8-7.7); NEUTROPHILS % (AUTO) 76.6 % (40.0-70.0); PLATELET COUNT (AUTO) 437 K/uL (130-430); RED BLOOD CELL COUNT(AUTO) 3.46 MIL/uL (4.2-6.2); RED CELL DISTRIBUTION WIDTH 13.9 % (9.0-15.0); WHITE BLOOD COUNT (AUTO) 11.8 K/uL (4.8-10.8)
[2024-07-17 11:53] LABS: PROTHROMBIN TIME 10.9 SECS (9.5-12.5)
[2024-07-17] MEDS: NACL 0.9% 1,000 ML IV ONE (11:53)
[2024-07-17 11:57] LABS: ALANINE AMINOTRANSFERASE 22 U/L (12-78); ALBUMIN 2.1 g/dL (3.4-4.8); ANION GAP 10 (5-15); ASPARTATE AMINOTRANSFERASE 23 U/L (10-37); BILIRUBIN,DIRECT 0.1 mg/dL (0.0-0.3); CALCIUM 8.9 mg/dL (8.4-11.0); CARBON DIOXIDE 28 mmol/L (23-29); CHLORIDE 100 mmol/L (98-107); CREATININE 0.95 mg/dL (0.55-1.30); GLUCOSE 155 mg/dL (74-106); POTASSIUM 4.5 mmol/L (3.5-5.1); SODIUM SERUM 138 mmol/L (136-145); TOTAL BILIRUBIN 0.2 mg/dL (0.0-1.0); TOTAL PROTEIN, SERUM 7.6 g/dL (6.4-8.3); UREA NITROGEN, BLOOD 38 mg/dL (8-21)
[2024-07-17] MEDS: 0.45% NACL 1,000 ML IV SCH (14:00)
[2024-07-17] MEDS ORDERED: MULT-530 GT (14:18)
[2024-07-17] MEDS ORDERED: OMEP40CA GT (14:18)
[2024-07-17] MEDS ORDERED: ATOR-449 GT (14:18)
[2024-07-17] MEDS ORDERED: XOP.63 INH ×2 (14:18)
[2024-07-17] MEDS ORDERED: INSU100V (14:18)
[2024-07-17] MEDS ORDERED: FOLI-43 GT (14:18)
[2024-07-17] MEDS ORDERED: [UNRECOGNIZED DRUG - CODE] GT (14:18)
[2024-07-17] MEDS ORDERED: GLUC1AUT IM (14:19)
[2024-07-17] MEDS ORDERED: HYDROcodone/ACETAMIN 5-325 MG TAB (NORCO/ VICODIN) PO PRN (14:45)
[2024-07-17] MEDS ORDERED: NALOXONE HCL 0.4 MG/ML AMP (NARCAN) IVP PRN (14:45)
[2024-07-17 14:58] VITALS: BP_SYST 102; PULSE 115; O2SAT 98
[2024-07-17] MEDS ORDERED: VANCOMYCIN HCL 1000 MG/VIAL IV ONE (15:00)
[2024-07-17] MEDS ORDERED: SEVELAMER CARBONATE GT SCH (15:00)
[2024-07-17] MEDS: VANCOMYCIN HCL 1,000 MG in NS 250 ML IV ONE (15:03)
[2024-07-17] MEDS ORDERED: ACETAMINOPHEN 500 MG TABLET PO PRN (15:15)
[2024-07-17] MEDS: metFORMIN HCL 500 MG TABLET PO SCH (16:28)
[2024-07-17] MEDS: levalbuterol HCL 0.63 MG/3 ML VIAL.NEB INH SCH ×2 (16:48→20:12)
[2024-07-17] MEDS ORDERED: CLINDAMYCIN 600 MG in D5W 50 ML IV SCH (18:00)
[2024-07-17 20:13] VITALS: O2SAT 98
[2024-07-17] MEDS ORDERED: NON-FORMULARY MEDICATION (Melatonin 3 MG) GT SCH (21:00)
[2024-07-17] MEDS ORDERED: NON-FORMULARY MEDICATION ([Ferrous Sulfate] 325 MG) GT SCH (21:00)
[2024-07-17 21:10] VITALS: BP_SYST 113; PULSE 85; RESP 18; TEMP 98.1; O2SAT 96
[2024-07-17 22:00] VITALS: BP_SYST 113; PULSE 85; RESP 18; TEMP 98.1
[2024-07-17] MEDS: MELATONIN 3 MG TABLET GT SCH (23:59)
[2024-07-17] MEDS: droNABinol 2.5 MG CAPSULE PO SCH (23:59)
[2024-07-17] MEDS: ATORVASTATIN 10 MG TABLET GT SCH (23:59)
[2024-07-18] VITALS (12 sets, daily range): BP systolic 91–122; PULSE 18–98; RESP 16–18; TEMP 96.3–98.7; O2SAT 93–99
[2024-07-18] MEDS: ENOXAPARIN SODIUM 30 MG/0.3 ML SYRINGE SUBCUT SCH
[2024-07-18 06:29] LABS: BASOPHILS % (AUTO) 0.3 % (0.0-2.0); EOSINOPHILS # (AUTO) 0.2 K/uL (0.0-0.4); EOSINOPHILS % (AUTO) 1.9 % (0.0-4.0); HEMATOCRIT 30.3 % (36-48); HEMOGLOBIN 10.1 g/dL (12.0-16.0); LYMPHOCYTES # (AUTO) 2.2 K/uL (1.0-5.5); LYMPHOCYTES % (AUTO) 24.5 % (20.5-51.5); MEAN CORPUSCULAR HEMOGLOBIN 31 pg (27-31); MEAN CORPUSCULAR HGB CONC 33 % (32-36); MEAN CORPUSCULAR VOLUME 93 fL (79.0-98.0); MONOCYTES # (AUTO) 0.7 K/uL (0.0-1.0); MONOCYTES % (AUTO) 8.2 % (1.7-9.3); NEUTROPHILS # (AUTO) 5.8 K/uL (1.8-7.7); NEUTROPHILS % (AUTO) 65.1 % (40.0-70.0); PLATELET COUNT (AUTO) 412 K/uL (130-430); RED BLOOD CELL COUNT(AUTO) 3.27 MIL/uL (4.2-6.2); WHITE BLOOD COUNT (AUTO) 8.9 K/uL (4.8-10.8)
[2024-07-18 07:04] LABS: TOTAL IRON BIND. CAPACITY 163 ug/dL (250-450)
[2024-07-18 07:41] LABS: ANION GAP 11 (5-15); CALCIUM 9.1 mg/dL (8.4-11.0); CARBON DIOXIDE 25 mmol/L (23-29); CHLORIDE 108 mmol/L (98-107); CREATININE 1.07 mg/dL (0.55-1.30); GLUCOSE 99 mg/dL (74-106); SODIUM SERUM 144 mmol/L (136-145); UREA NITROGEN, BLOOD 30 mg/dL (8-21)
[2024-07-18] MEDS ORDERED: IRON MINERALS GT SCH (09:00)
[2024-07-18] MEDS ORDERED: BENAZEPRIL HCL Non-Formulary 10 MG TABLET PO SCH (09:00)
[2024-07-18] MEDS ORDERED: MULTIVITAMIN GT SCH (09:00)
[2024-07-18] MEDS ORDERED: ZINC GLUCONATE 50 MG PO SCH (09:00)
[2024-07-18] MEDS ORDERED: LANSOPRAZOLE 30 MG CAPSULE.DR PO SCH (09:00)
[2024-07-18] MEDS ORDERED: NON-FORMULARY MEDICATION (Lactobacillus Acidophilus (Acidophilus) 1 TAB) PO SCH (09:00)
[2024-07-18] MEDS: PANTOPRAZOLE SODIUM 40 MG TAB PO SCH (11:07)
[2024-07-18] MEDS: FOLIC ACID 1 MG TABLET GT SCH (11:08)
[2024-07-18] MEDS: LACTOBACILLUS RHAMNOSUS GG 1 CAP CAPSULE PO SCH (11:08)
[2024-07-18] MEDS: ASCORBIC ACID 500 MG TABLET GT SCH (11:08)
[2024-07-18] MEDS: SEVELAMER CARBONATE 800 MG TABLET GT SCH (11:08)
[2024-07-18] MEDS: ARIPiprazole 5 MG TAB GT SCH (11:09)
[2024-07-18] MEDS: LISINOPRIL 10 MG TABLET (PRINIVIL) PO SCH (11:09)
[2024-07-18] MEDS: MULTIVITAMINS TAB 1 TABLET PO SCH (11:09)
[2024-07-18] MEDS: FERROUS SULFATE 325 MG TABLET.DR GT SCH (11:10)
[2024-07-18] MEDS: VANCOMYCIN HCL 500 MG in NS 100 ML IV SCH (15:44)
[2024-07-18 21:59] LABS: BILIRUBIN,URINE NEGATIVE (NEGATIVE); BLOOD, URINE NEGATIVE (NEGATIVE); CLARITY/URINE SL CLOUDY (CLEAR); COLOR,URINE YELLOW (YELLOW); GLUCOSE,URINE NEGATIVE (NEGATIVE); KETONES,URINE NEGATIVE (NEGATIVE); LEUKOCYTE ESTERASE ,URINE 2+ (NEGATIVE); NITRITE, URINE NEGATIVE (NEGATIVE); PROTEIN URINE NEGATIVE (NEGATIVE); UROBILINOGEN,URINE 0.2 (0.2-1.0)
[2024-07-18 22:07] LABS: BACTERIA,URINE MANY /HPF (None Seen); RBC,URINE 0-3 /HPF (0-3); WBC,URINE 20-50 /HPF (0-3)
[2024-07-18 22:08] LABS: MUCUS,URINE None Seen /LPF (None Seen)
[2024-07-19] VITALS (8 sets, daily range): BP systolic 105–147; PULSE 72–97; RESP 14–18; TEMP 97.6–97.9; O2SAT 95–100
[2024-07-19 06:32] LABS: BASOPHILS % (AUTO) 0.2 % (0.0-2.0); EOSINOPHILS # (AUTO) 0.1 K/uL (0.0-0.4); HEMOGLOBIN 10.1 g/dL (12.0-16.0); LYMPHOCYTES # (AUTO) 2.7 K/uL (1.0-5.5); LYMPHOCYTES % (AUTO) 30.6 % (20.5-51.5); MEAN CORPUSCULAR HEMOGLOBIN 30 pg (27-31); MEAN CORPUSCULAR HGB CONC 33 % (32-36); MEAN CORPUSCULAR VOLUME 93 fL (79.0-98.0); MONOCYTES # (AUTO) 0.8 K/uL (0.0-1.0); MONOCYTES % (AUTO) 8.5 % (1.7-9.3); NEUTROPHILS # (AUTO) 5.4 K/uL (1.8-7.7); NEUTROPHILS % (AUTO) 59.7 % (40.0-70.0); PLATELET COUNT (AUTO) 454 K/uL (130-430); RED BLOOD CELL COUNT(AUTO) 3.34 MIL/uL (4.2-6.2); RED CELL DISTRIBUTION WIDTH 13.9 % (9.0-15.0)
[2024-07-19 06:49] LABS: ANION GAP 12 (5-15); CALCIUM 8.9 mg/dL (8.4-11.0); CARBON DIOXIDE 24 mmol/L (23-29); CHLORIDE 104 mmol/L (98-107); CREATININE 0.96 mg/dL (0.55-1.30); GLUCOSE 83 mg/dL (74-106); POTASSIUM 4.2 mmol/L (3.5-5.1); SODIUM SERUM 140 mmol/L (136-145); UREA NITROGEN, BLOOD 28 mg/dL (8-21)
[2024-07-19] MEDS: HYDROcodone/ACETAMIN 5-325 MG TAB (NORCO/ VICODIN) GT PRN (13:06)
[2024-07-19] MEDS: ACETAMINOPHEN 500 MG TABLET PO PRN (18:14)
[2024-07-19] MEDS: QUEtiapine FUMARATE 25 MG TABLET GT SCH (21:00)
[2024-07-20] VITALS (10 sets, daily range): BP systolic 90–117; PULSE 77–105; RESP 16–18; TEMP 97.1–98.4; O2SAT 95–100
[2024-07-20] MEDS: GLUCAGON,HUMAN RECOMBINANT 1 MG VIAL IM PRN (13:03)
[2024-07-20 14:29] LABS: BASOPHILS % (AUTO) 0.2 % (0.0-2.0); EOSINOPHILS # (AUTO) 0.1 K/uL (0.0-0.4); EOSINOPHILS % (AUTO) 0.8 % (0.0-4.0); HEMATOCRIT 29.5 % (36-48); HEMOGLOBIN 9.7 g/dL (12.0-16.0); LYMPHOCYTES % (AUTO) 11.5 % (20.5-51.5); MEAN CORPUSCULAR HEMOGLOBIN 30 pg (27-31); MEAN CORPUSCULAR HGB CONC 33 % (32-36); MEAN CORPUSCULAR VOLUME 91 fL (79.0-98.0); MONOCYTES # (AUTO) 0.8 K/uL (0.0-1.0); MONOCYTES % (AUTO) 4.7 % (1.7-9.3); NEUTROPHILS # (AUTO) 14.4 K/uL (1.8-7.7); NEUTROPHILS % (AUTO) 82.8 % (40.0-70.0); PLATELET COUNT (AUTO) 475 K/uL (130-430); RED BLOOD CELL COUNT(AUTO) 3.23 MIL/uL (4.2-6.2); RED CELL DISTRIBUTION WIDTH 14.4 % (9.0-15.0)
[2024-07-20 14:30] LABS: WHITE BLOOD COUNT (AUTO) 17.4 K/uL (4.8-10.8)
[2024-07-20 14:48] LABS: ANION GAP 8 (5-15); CALCIUM 8.8 mg/dL (8.4-11.0); CARBON DIOXIDE 25 mmol/L (23-29); CHLORIDE 106 mmol/L (98-107); CREATININE 0.88 mg/dL (0.55-1.30); GLUCOSE 88 mg/dL (74-106); POTASSIUM 4.2 mmol/L (3.5-5.1); SODIUM SERUM 139 mmol/L (136-145); UREA NITROGEN, BLOOD 21 mg/dL (8-21)
[2024-07-21] VITALS (9 sets, daily range): BP systolic 86–107; PULSE 102–104; RESP 18–20; TEMP 97.4–98.1; O2SAT 95–97
[2024-07-21 07:19] LABS: BASOPHILS % (AUTO) 0.4 % (0.0-2.0); EOSINOPHILS # (AUTO) 0.2 K/uL (0.0-0.4); HEMATOCRIT 31.4 % (36-48); HEMOGLOBIN 10.1 g/dL (12.0-16.0); LYMPHOCYTES % (AUTO) 24.4 % (20.5-51.5); MEAN CORPUSCULAR HEMOGLOBIN 30 pg (27-31); MEAN CORPUSCULAR HGB CONC 32 % (32-36); MEAN CORPUSCULAR VOLUME 92 fL (79.0-98.0); MONOCYTES # (AUTO) 0.7 K/uL (0.0-1.0); MONOCYTES % (AUTO) 8.9 % (1.7-9.3); NEUTROPHILS # (AUTO) 5.3 K/uL (1.8-7.7); NEUTROPHILS % (AUTO) 64.3 % (40.0-70.0); PLATELET COUNT (AUTO) 523 K/uL (130-430); RED BLOOD CELL COUNT(AUTO) 3.42 MIL/uL (4.2-6.2); RED CELL DISTRIBUTION WIDTH 14.3 % (9.0-15.0); WHITE BLOOD COUNT (AUTO) 8.3 K/uL (4.8-10.8)
[2024-07-21 08:13] LABS: ALANINE AMINOTRANSFERASE 19 U/L (12-78); ALBUMIN 2.2 g/dL (3.4-4.8); ANION GAP 9 (5-15); ASPARTATE AMINOTRANSFERASE 27 U/L (10-37); CALCIUM 9.1 mg/dL (8.4-11.0); CARBON DIOXIDE 25 mmol/L (23-29); CHLORIDE 105 mmol/L (98-107); CREATININE 0.99 mg/dL (0.55-1.30); GLUCOSE 116 mg/dL (74-106); POTASSIUM 3.9 mmol/L (3.5-5.1); SODIUM SERUM 139 mmol/L (136-145); TOTAL BILIRUBIN 0.3 mg/dL (0.0-1.0); UREA NITROGEN, BLOOD 36 mg/dL (8-21)
[2024-07-21] MEDS: AZTREONAM 1 GM in NS 50 ML IV SCH (15:48)
[2024-07-22] VITALS (10 sets, daily range): BP systolic 98–113; PULSE 97–104; RESP 16–18; TEMP 96.4–98; O2SAT 95–100
[2024-07-22] MEDS: CEFTAZIDIME/AVIBACTAM 1.25 GM in NS 100 ML IV SCH (13:57)
[2024-07-23] VITALS (9 sets, daily range): BP systolic 92–110; PULSE 83–109; RESP 16–21; TEMP 96–98.3; O2SAT 93–99
[2024-07-24] VITALS (9 sets, daily range): BP systolic 90–149; PULSE 81–111; RESP 16–18; TEMP 96.5–99.1; O2SAT 95–100
[2024-07-24 06:02] LABS: BASOPHILS % (AUTO) 0.3 % (0.0-2.0); EOSINOPHILS # (AUTO) 0.2 K/uL (0.0-0.4); EOSINOPHILS % (AUTO) 1.9 % (0.0-4.0); HEMATOCRIT 29.6 % (36-48); HEMOGLOBIN 9.7 g/dL (12.0-16.0); LYMPHOCYTES # (AUTO) 1.9 K/uL (1.0-5.5); LYMPHOCYTES % (AUTO) 21.9 % (20.5-51.5); MEAN CORPUSCULAR HEMOGLOBIN 30 pg (27-31); MEAN CORPUSCULAR HGB CONC 33 % (32-36); MEAN CORPUSCULAR VOLUME 92 fL (79.0-98.0); MONOCYTES # (AUTO) 0.7 K/uL (0.0-1.0); MONOCYTES % (AUTO) 7.6 % (1.7-9.3); NEUTROPHILS % (AUTO) 68.3 % (40.0-70.0); PLATELET COUNT (AUTO) 480 K/uL (130-430); WHITE BLOOD COUNT (AUTO) 8.7 K/uL (4.8-10.8)
[2024-07-24 06:21] LABS: ANION GAP 8 (5-15); CALCIUM 8.7 mg/dL (8.4-11.0); CARBON DIOXIDE 27 mmol/L (23-29); CHLORIDE 106 mmol/L (98-107); CREATININE 0.85 mg/dL (0.55-1.30); GLUCOSE 81 mg/dL (74-106); POTASSIUM 4.1 mmol/L (3.5-5.1); SODIUM SERUM 141 mmol/L (136-145); UREA NITROGEN, BLOOD 16 mg/dL (8-21)
[2024-07-24] MEDS ORDERED: NS IRRIG SOLN 1000 ML IR ONE (08:09)
[2024-07-24] MEDS ORDERED: BUPIVACAINE /PF 0.25% 10 ML VIAL INJ ONE (08:09)
[2024-07-24] MEDS ORDERED: PROPOFOL 200MG/ 20ML VIAL (DIPRIVAN) IV ONE (08:09)
[2024-07-24] MEDS ORDERED: LR 1,000 ML IV.SOLN IV ONE (08:09)
[2024-07-24] MEDS ORDERED: ONDANSETRON HCL 4 MG/2 ML VIAL IVP PRN (08:30)
[2024-07-24] MEDS: LR 1,000 ML IV ONE (08:30)
[2024-07-24] MEDS ORDERED: fentaNYL CITRATE/PF 100 MCG/2 ML AMP IVP PRN ×3 (08:30)
[2024-07-25] VITALS (11 sets, daily range): BP systolic 85–128; PULSE 89–123; RESP 17–20; TEMP 97.6–98.6; O2SAT 94–100
[2024-07-25 06:55] LABS: BASOPHILS % (AUTO) 0.3 % (0.0-2.0); EOSINOPHILS # (AUTO) 0.2 K/uL (0.0-0.4); EOSINOPHILS % (AUTO) 2.3 % (0.0-4.0); HEMOGLOBIN 10.1 g/dL (12.0-16.0); LYMPHOCYTES # (AUTO) 2.1 K/uL (1.0-5.5); MEAN CORPUSCULAR HEMOGLOBIN 31 pg (27-31); MEAN CORPUSCULAR HGB CONC 34 % (32-36); MEAN CORPUSCULAR VOLUME 92 fL (79.0-98.0); MONOCYTES # (AUTO) 0.6 K/uL (0.0-1.0); MONOCYTES % (AUTO) 7.3 % (1.7-9.3); NEUTROPHILS # (AUTO) 5.8 K/uL (1.8-7.7); NEUTROPHILS % (AUTO) 66.1 % (40.0-70.0); PLATELET COUNT (AUTO) 507 K/uL (130-430); RED BLOOD CELL COUNT(AUTO) 3.25 MIL/uL (4.2-6.2); RED CELL DISTRIBUTION WIDTH 14.2 % (9.0-15.0); WHITE BLOOD COUNT (AUTO) 8.8 K/uL (4.8-10.8)
[2024-07-25 06:57] LABS: ANION GAP 9 (5-15); CALCIUM 8.5 mg/dL (8.4-11.0); CARBON DIOXIDE 28 mmol/L (23-29); CHLORIDE 108 mmol/L (98-107); GLUCOSE 108 mg/dL (74-106); POTASSIUM 4.6 mmol/L (3.5-5.1); SODIUM SERUM 145 mmol/L (136-145); UREA NITROGEN, BLOOD 14 mg/dL (8-21)
[2024-07-26] VITALS (10 sets, daily range): BP systolic 93–111; PULSE 95–118; RESP 18–22; TEMP 96.8–97.9; O2SAT 94–98
[2024-07-27] VITALS (10 sets, daily range): BP systolic 98–134; PULSE 88–113; RESP 16–21; TEMP 96.6–97.5; O2SAT 93–98
[2024-07-27 08:47] LABS: BASOPHILS % (AUTO) 0.4 % (0.0-2.0); EOSINOPHILS # (AUTO) 0.1 K/uL (0.0-0.4); EOSINOPHILS % (AUTO) 1.5 % (0.0-4.0); HEMOGLOBIN 10.6 g/dL (12.0-16.0); MEAN CORPUSCULAR HEMOGLOBIN 30 pg (27-31); MEAN CORPUSCULAR HGB CONC 32 % (32-36); MEAN CORPUSCULAR VOLUME 94 fL (79.0-98.0); MONOCYTES # (AUTO) 0.5 K/uL (0.0-1.0); MONOCYTES % (AUTO) 6.7 % (1.7-9.3); NEUTROPHILS # (AUTO) 5.1 K/uL (1.8-7.7); NEUTROPHILS % (AUTO) 65.4 % (40.0-70.0); PLATELET COUNT (AUTO) 473 K/uL (130-430); RED BLOOD CELL COUNT(AUTO) 3.51 MIL/uL (4.2-6.2); RED CELL DISTRIBUTION WIDTH 14.6 % (9.0-15.0); WHITE BLOOD COUNT (AUTO) 7.8 K/uL (4.8-10.8)
[2024-07-27 09:00] LABS: ANION GAP 9 (5-15); CALCIUM 9.2 mg/dL (8.4-11.0); CARBON DIOXIDE 30 mmol/L (23-29); CHLORIDE 114 mmol/L (98-107); CREATININE 1.07 mg/dL (0.55-1.30); GLUCOSE 136 mg/dL (74-106); POTASSIUM 4.9 mmol/L (3.5-5.1); SODIUM SERUM 153 mmol/L (136-145); UREA NITROGEN, BLOOD 30 mg/dL (8-21)
[2024-07-27] MEDS: D5W 1,000 ML IV SCH (14:35)
[2024-07-28] VITALS (9 sets, daily range): BP systolic 95–140; PULSE 98–121; RESP 16–20; TEMP 97.5–98.8; O2SAT 94–98
[2024-07-28 07:54] LABS: ANION GAP 8 (5-15); CALCIUM 9.3 mg/dL (8.4-11.0); CARBON DIOXIDE 29 mmol/L (23-29); CHLORIDE 114 mmol/L (98-107); CREATININE 1.22 mg/dL (0.55-1.30); GLUCOSE 157 mg/dL (74-106); POTASSIUM 4.2 mmol/L (3.5-5.1); SODIUM SERUM 151 mmol/L (136-145); UREA NITROGEN, BLOOD 25 mg/dL (8-21)
[2024-07-28] MEDS: INSULIN REGULAR, HUMAN 100 UNITS/ML, 3 ML VIAL (humuLIN R) SUBCUT PRN (11:31)
[2024-07-28] MEDS ORDERED: *CUBICIN 4 MG/KG Q24H/PHARMACY XX SCH (13:45)
[2024-07-28] MEDS ORDERED: DAPTOMYCIN IV SCH (15:00)
[2024-07-28] MEDS: NS IV SCH (16:24)
[2024-07-28] MEDS: DAPTOMYCIN IV SCH (16:24)
[2024-07-29] VITALS (9 sets, daily range): BP systolic 93–111; PULSE 110–124; RESP 16–20; TEMP 97.2–98.2; O2SAT 95–100
[2024-07-29 07:38] LABS: BASOPHILS % (AUTO) 0.3 % (0.0-2.0); EOSINOPHILS # (AUTO) 0.1 K/uL (0.0-0.4); EOSINOPHILS % (AUTO) 1.1 % (0.0-4.0); HEMATOCRIT 33.7 % (36-48); HEMOGLOBIN 10.7 g/dL (12.0-16.0); LYMPHOCYTES # (AUTO) 2.4 K/uL (1.0-5.5); LYMPHOCYTES % (AUTO) 21.7 % (20.5-51.5); MEAN CORPUSCULAR HEMOGLOBIN 30 pg (27-31); MEAN CORPUSCULAR HGB CONC 32 % (32-36); MEAN CORPUSCULAR VOLUME 94 fL (79.0-98.0); MONOCYTES # (AUTO) 0.8 K/uL (0.0-1.0); MONOCYTES % (AUTO) 7.1 % (1.7-9.3); NEUTROPHILS # (AUTO) 7.6 K/uL (1.8-7.7); NEUTROPHILS % (AUTO) 69.8 % (40.0-70.0); PLATELET COUNT (AUTO) 400 K/uL (130-430); RED BLOOD CELL COUNT(AUTO) 3.57 MIL/uL (4.2-6.2); RED CELL DISTRIBUTION WIDTH 14.9 % (9.0-15.0); WHITE BLOOD COUNT (AUTO) 10.8 K/uL (4.8-10.8)
[2024-07-30] VITALS (7 sets, daily range): BP systolic 91–99; PULSE 62–130; RESP 16–20; TEMP 97.9–98.7; O2SAT 94–100
[2024-07-30 08:26] LABS: ALANINE AMINOTRANSFERASE 13 U/L (12-78); ALBUMIN 2.4 g/dL (3.4-4.8); ANION GAP 14 (5-15); ASPARTATE AMINOTRANSFERASE 16 U/L (10-37); CALCIUM 9.1 mg/dL (8.4-11.0); CARBON DIOXIDE 25 mmol/L (23-29); CHLORIDE 115 mmol/L (98-107); CREATINE KINASE, TOTAL 29 U/L (26-192); CREATININE 1.42 mg/dL (0.55-1.30); GLUCOSE 139 mg/dL (74-106); POTASSIUM 4.6 mmol/L (3.5-5.1); SODIUM SERUM 154 mmol/L (136-145); TOTAL BILIRUBIN 0.2 mg/dL (0.0-1.0); TOTAL PROTEIN, SERUM 7.5 g/dL (6.4-8.3); UREA NITROGEN, BLOOD 52 mg/dL (8-21)
[2024-07-30] MEDS: NS 500 ML IV ONE (14:36)
[2024-07-30] MEDS: NACL 0.9% 1,000 ML IV SCH (14:36)
== END 2024-07-30 20:05 | DRG 623 ==
LOC: SED 10:25 → STU 13:57
PROVIDERS: ADMIT Family Medicine; ATTEND Family Medicine
PROC: 0D20XUZ Change Feeding Device in Upper Intestinal Tract, External Approach (ICD-10-PCS; 2024-07-20)
PROC: 0JBR0ZZ Excision of Left Foot Subcutaneous Tissue and Fascia, Open Approach (ICD-10-PCS; principal; 2024-07-24 08:09)
DX: E11.69 Type 2 diabetes mellitus with other specified complication (principal); E44.0 Moderate protein-calorie malnutrition; L03.116 Cellulitis of left lower limb; K94.23 Gastrostomy malfunction; N39.0 Urinary tract infection, site not specified; L03.115 Cellulitis of right lower limb; M86.8X7 Other osteomyelitis, ankle and foot; N17.0 Acute kidney failure with tubular necrosis; E11.621 Type 2 diabetes mellitus with foot ulcer; I10 Essential (primary) hypertension; D64.9 Anemia, unspecified; Y83.8 Other surgical procedures as the cause of abnormal reaction of the patient, or of later complication, without mention of misadventure at the time of the procedure; D72.829 Elevated white blood cell count, unspecified; Z86.73 Personal history of transient ischemic attack (TIA), and cerebral infarction without residual deficits; Z79.899 Other long term (current) drug therapy; Z68.22 Body mass index [BMI] 22.0-22.9, adult; Z88.8 Allergy status to other drugs, medicaments and biological substances; L89.899 Pressure ulcer of other site, unspecified stage; E11.51 Type 2 diabetes mellitus with diabetic peripheral angiopathy without gangrene
CPT/HCPCS: 36415; 71045; 74018; 80048; 80053; 80076; 80202; 81000; 81001; 81015; 82550; 82948; 83540; 83550; 83605; 83735; 84484; 84550; 85025; 85610; 85730; 87040; 87070; 87075; 87081; 87086; 87186; 88304; 93005; 94070; 94640; 94760; 99291; A6209; C1751; G0378; J0713; J0878; J1610; J1650; J1815; J1956; J2704; J3370; J3490; J7030; J7040; J7042; J7060; J7120; J7614; Q0167